=== PATIENT | female | born 1965 | race African-American/Black ===

== ENCOUNTER 2017-05-25 02:11 | Inpatient (IN) | payer BC ==
--- NOTE | 2017-05-25 02:53 | RADIOLOGY REPORT (SQ) ---
EXAM DESCRIPTION: CHEST PA/LAT CLINICAL HISTORY: chest tightness COMPARISON: 01/08/2016 FINDINGS: Frontal and lateral views of the chest. The cardiomediastinal silhouette has normal size and contour. No consolidation, pneumothorax, or pleural effusion. No acute osseous abnormality. Prior cholecystectomy. IMPRESSION: 1. No acute pulmonary process identified.
[2017-05-25] MEDS ORDERED: ASPIRIN 81 MG TABLET, CHEWABLE PO ONE (03:48)
[2017-05-25] MEDS ORDERED: ALBUTEROL SULFATE 0.083% NEB 2.5 MG/3 ML AMPUL NEB ONE (03:49)
--- NOTE | 2017-05-25 03:49 | ER Document Report ---
ED General - General TRAVEL OUTSIDE OF THE [place] IN LAST 30 DAYS: No <DESIRAE CORDOVA - Last Filed: 05/25/17 08:22> <ERICK RESTREPO - Last Filed: 05/25/17 14:05> - General Chief Complaint: Chest Tightness Stated Complaint: CHEST TIGHTNESS Time Seen by Provider: 05/25/17 03:36 Notes: Patient is a 52 year old female who presents to the ED complaining of nonproductive cough, chest tightness for one week. She admits to chest discomfort this evening around 6pm. She states it improved with a hot shower with steam. She denies any nausea, vomiting, abdominal pain. Denies any recent travel, surgeries, hormone replacement, tobacco use. Patient denies any past history of [place]. Had a recent cardiac workup in December [place] with a negative stress test and echo. She does have a history of hypertension. Primary care is with Patricia Ibrahim. (DESIRAE CORDOVA) - Related Data Allergies/Adverse Reactions: No Known Allergies Allergy (Verified 05/25/17 03:37) Past Medical History - Social History Smoking Status: Never Smoker Patient has suicidal ideation: No Patient has homicidal ideation: No - Past Medical History Cardiac Medical History: Reports: Hx Hypertension Pulmonary Medical History: Reports: Hx Asthma - childhood, Hx Bronchitis, Hx Pneumonia Renal/ Medical History: Denies: Hx Peritoneal Dialysis Musculoskeltal Medical History: Reports Hx Arthritis Past Surgical History: Reports: Hx Cholecystectomy, Hx Tonsillectomy <DESIRAE CORDOVA - Last Filed: 05/25/17 08:22> Review of Systems <DESIRAE CORDOVA - Last Filed: 05/25/17 08:22> <ERICK RESTREPO - Last Filed: 05/25/17 14:05> - Review of Systems Notes: REVIEW OF SYSTEMS: CONSTITUTIONAL : Denies fever, chills, or sweats. Denies recent illness. EENT: Denies eye, ear, throat, or mouth pain or symptoms. Denies nasal or sinus congestion or discharge. Denies throat, tongue, or mouth swelling or difficulty swallowing. CARDIOVASCULAR: Admits to chest pain with pain reproducible to palpation of her sternum. Denies palpitations or racing or irregular heart beat. Denies ankle edema. RESPIRATORY: Admits to cough, cold and congestion. Denies shortness of breath, difficulty breathing, or wheezing. GASTROINTESTINAL: Denies abdominal pain or distention. Denies nausea, vomiting , or diarrhea. Denies blood in vomitus, stools, or per rectum. Denies black, tarry stools. Denies constipation. GENITOURINARY: Denies difficulty urinating, painful urination, burning, frequency, blood in urine, or discharge. MUSCULOSKELETAL: Denies any muscle spasms, difficulty walking, extremity pain SKIN: Denies rash, lesions or sores. HEMATOLOGIC : Denies easy bruising or bleeding. LYMPHATIC: Denies swollen, enlarged glands. NEUROLOGICAL: Denies confusion or altered mental status. Denies passing out or loss of consciousness. Denies dizziness or lightheadedness. Denies headache. Denies weakness or paralysis or loss of use of either side. Denies problems with gait or speech. Denies sensory loss, numbness, or tingling. Denies seizures. PSYCHIATRIC: Denies anxiety or stress. Denies depression, suicidal ideation, or homicidal ideation. ALL OTHER SYSTEMS REVIEWED AND NEGATIVE. Dictation was performed using [employer] voice recognition software (DESIRAE CORDOVA) Physical Exam <DESIRAE CORDOVA - Last Filed: 05/25/17 08:22> <ERICK RESTREPO - Last Filed: 05/25/17 14:05> - Vital signs Vitals: Temp Pulse BP Pulse Ox 98.6 F 71 155/84 H 95 05/25/17 02:25 05/25/17 02:25 05/25/17 02:25 05/25/17 02:25 - Notes Notes: PHYSICAL EXAM GENERAL: Alert, interacts well. HEAD: Normocephalic, atraumatic. EYES: Pupils equal, round, and reactive to light. Extraocular movements intact. ENT: Oral mucosa moist, tongue midline. NECK: Full range of motion. Supple. Trachea midline. LUNGS: Diffuse rhonchi noted bilaterally without wheezes, stridor no respiratory distress. HEART: Chest tender to palpation over the sternum without crepitus, deformities regular rate and rhythm. No murmurs, gallops, or rubs. ABDOMEN: Soft, nondistended, nontender. No guarding, rebound, or rigidity.. Bowel sounds present in all 4 quadrants. EXTREMITIES: Moves all 4 extremities spontaneously. No edema, radial and dorsalis pedis pulses 2/4 bilaterally. No cyanosis. NEUROLOGICAL: Alert and oriented x4. Normal speech. PSYCH: Normal affect, normal mood. SKIN: Warm, dry, normal turgor. No rashes or lesions noted. (DESIRAE CORDOVA) Course - Laboratory Result Diagrams: 05/25/17 04:10 05/25/17 04:10 <DESIRAE CORDOVA - Last Filed: 05/25/17 08:22> - Laboratory Result Diagrams: 05/25/17 04:10 05/25/17 04:10 <ERICK RESTREPO - Last Filed: 05/25/17 14:05> - Re-evaluation Re-evalutation: 05/25/17 05:45 Patient is a 52-year-old female who is hemodynamically stable, no acute distress and afebrile. Patient states that she had improvement with her breathing after breathing treatments but has returned to wheezing and shortness of breath. Patient is very well in appearance, blood pressure elevated but do for him a.m. lisinopril. Low clinical suspicion for ACS given clinical history , exam, EKG without ST elevations or depressions, and negative initial troponin. No relief of chest pain with nitro. HEART score less than or equal to 3. PE also seems unlikely given clinical history, absence of tachycardia or dyspnea. Well's score of 0. D-dimer negative. CXR without evidence of pneumothorax or pneumonia. No widened mediastinum. Aortic dissection also seems unlikely given history, symmetric pulses, CXR, and vitals. Care signed out to Erick Rodriguez nurse practitioner (DESIRAE CORDOVA) [id number]-provider received apart from JUDITH Woodard. Patient evaluated at bedside, states she still is having chest pain. Patient reports she is also having shortness of breath worsening with her chest pain. EKG was unchanged from previous EKGs. Patient did bring her history from when she was seen at [facility] for her stress test as well as her echocardiogram which were both. This providers unable to reproduce deep lower sternal chest pain but able to reproduce upper sternal chest pain on palpation. Patient remains afebrile however she is hypertensive. Patient was given lisinopril which is her home dose of hypertensive medication. Patient is rhonchorous throughout. Given begin treatment. Chest x-ray was negative for any acute findings. We will order CTA concerns of dyspnea, tachypnea with chest pain. Patient remains afebrile. 0945-CTA shows left lower lobe pneumonia. Start patient on IV levofloxacin and Rocephin. Patient given another breathing treatment. Second set of troponin negative. 1030-Patient remains rhonchorous throughout after breathing treatment after auscultation of the lungs no other concerns of AAA, PE , masses or lesions. Patient ambulated around the unit, pulse ox no greater than 93%, heart rate elevated at 112 with blood pressure 185/82. 1115-patient admitted as an inpatient for chest pain, left lower lobe pneumonia and tachypnea. All questions and concerns answered by this provider about her admission as well as her family's questions or concerns. Patient was agreeable to being admitted for further care and evaluation. (ERICK RESTREPO) - Vital Signs Vital signs: Temp Pulse Resp BP Pulse Ox 97.9 F 71 17 166/84 H 95 05/25/17 07:26 05/25/17 02:25 05/25/17 11:31 05/25/17 11:31 05/25/17 11:31 - Laboratory Laboratory results interpreted by me: 05/25/17 04:10 Sodium 145.3 H Discharge <DESIRAE CORDOVA - Last Filed: 05/25/17 08:22> - Discharge Admitting Provider: Hospitalist - Dr. Dejan Torres Unit Admitted: Telemetry <ERICK RESTREPO - Last Filed: 05/25/17 14:05> - Discharge Clinical Impression: Tachypnea Chest pain Qualifiers: Ischemic chest pain type: other angina pectoris type Pneumonia Qualifiers: Pneumonia type: due to unspecified organism Clinical Impression: (Ruled Out): Tachypnea on examination Condition: Good Disposition: ADMITTED INPATIENT
[2017-05-25 04:20] LABS: ABSOLUTE EOSINOPHILS # (AUTO) 0.1 10^3/uL (0.0-0.6); ABSOLUTE LYMPHOCYTES (AUTO) 2.5 10^3/uL (0.5-4.7); ABSOLUTE MONOCYTES (AUTO) 0.5 10^3/uL (0.1-1.4); ABSOLUTE NEUT (AUTO) 2.7 10^3/uL (1.7-8.2); BASOPHILS % (AUTO) 0.5 % (0-2); EOSINOPHILS % (AUTO) 2.1 % (0-6); HEMOGLOBIN 13.3 g/dL (12.0-15.5); MEAN CORPUSCULAR HEMOGLOBIN 28.8 pg (27.0-33.4); MEAN CORPUSCULAR HGB CONC 33.2 g/dL (32.0-36.0); MEAN CORPUSCULAR VOLUME 87 fl (80-97); MONOCYTES % (AUTO) 8.7 % (3-13); PLATELET COUNT 226 10^3/uL (150-450); RED BLOOD COUNT 4.61 10^6/uL (3.72-5.28); RED CELL DISTRIBUTION WIDTH 13.4 % (11.5-14.0); SEGMENTED NEUTROPHILS % (AUTO) 45.7 % (42-78); TOTAL CELLS COUNTED % (AUTO) 100 %; WHITE BLOOD COUNT 5.9 10^3/uL (4.0-10.5)
[2017-05-25 04:52] LABS: ALANINE AMINOTRANSFERASE 34 U/L (9-52); ALBUMIN 4.2 g/dL (3.5-5.0); ALKALINE PHOSPHATASE 60 U/L (38-126); ANION GAP 9 (5-19); ASPARTATE AMINO TRANSFERASE 31 U/L (14-36); BILIRUBIN,DIRECT 0.4 mg/dL (0.0-0.4); BILIRUBIN,TOTAL 0.8 mg/dL (0.2-1.3); BLOOD UREA NITROGEN 17 mg/dL (7-20); CALCIUM 9.5 mg/dL (8.4-10.2); CARBON DIOXIDE 29 mmol/L (22-30); CHLORIDE 107 mmol/L (98-107); CREATINE KINASE 102 U/L (30-135); GLUCOSE 96 mg/dL (75-110); SODIUM 145.3 mmol/L (137-145); TOTAL PROTEIN 7.4 g/dL (6.3-8.2)
[2017-05-25 05:04] LABS: CREATINE KINASE MB 0.56 ng/mL (<4.55)
[2017-05-25 05:20] LABS: TROPONIN I < 0.012 ng/mL
[2017-05-25] MEDS ORDERED: PREDNISONE 20 MG TABLET PO ONE (05:42)
[2017-05-25] MEDS ORDERED: IPRATROPIUM/ALBUTEROL 0.5-2.5 MG/3 ML AMPUL NEB ONE ×3 (05:42→15:00)
[2017-05-25] MEDS ORDERED: LISINOPRIL 10 MG TABLET PO ONE (06:33)
[2017-05-25] MEDS ORDERED: NITROGLYCERIN 0.4 MG/TAB 25 TAB/BOTTLE SL PRN (07:20)
--- NOTE | 2017-05-25 09:18 | RADIOLOGY REPORT (SQ) ---
EXAM DESCRIPTION: CTA CHEST COMPLETED DATE/TIME: 05/25/2017 8:43 am REASON FOR STUDY: dyspnea, pulse ox 92%, Chest pain COMPARISON: None. TECHNIQUE: CT scan of the chest performed using helical scanning technique with dynamic intravenous contrast injection. Images reviewed with lung, soft tissue and bone windows. Reconstructed coronal and sagittal MPR images reviewed. Additional 3 dimensional post-processing performed to develop Maximal Intensity Projection images (RI P). All images stored on PACS. All CT scanners at this facility use dose modulation, iterative reconstruction, and/or weight based d osing when appropriate to reduce radiation dose to as low as reasonably achievable (ALARA). [facility]: Dose Right [facility]: CareDose [facility]: Dose Right [facility]: Teradose 4D [facility]: [email or web address] CONTRAST TYPE AND DOSE: contrast/concentration: Isovue 370.00 mg/ml; Total Contrast Delivered: 82.0 ml; Total Saline Delivered: 77.0 ml 82 mm Isovue 370- low osmolar. Contrast bolus optimized for the pulmonary arteries. Not diagnostic for the aorta. RENAL FUNCTION: Creatinine 0.86 RADIATION DOSE: CT Rad equipment meets quality standard of care and radiation dose reduction techniq ues were employed. CTDIvol: 16.5 - 24.2 mGy. DLP: 875 mGy-cm. . LIMITATIONS: None. FINDINGS: LUNGS AND PLEURA: Patchy infiltrate posterior segment of the left lower lobe. Atelectasis versus pneumonia. AORTA AND GREAT VESSELS: No aneurysm. Contrast bolus not optimized for the aorta. HEART: No pericardial effusion. No significant coronary artery calcifications. PULMONARY ARTERIES: No emboli visualized in the main pulmonary arteries or the segmental branches. HILAR AND MEDIASTINAL STRUCTURES: No identified masses or abnormal nodes. HARDWARE: None in the chest. UPPER ABDOMEN: No significant findings. Limited exam. THYROID AND OTHER SOFT TISSUES: No masses. No adenopathy. BONES: No acute or significant finding. 3D MIPS: Confirm above findings. OTHER: No other significant finding. IMPRESSION: No aortic aneurysm or pulmonary emboli. Infiltrate posterior segment of the the left lo wer lobe. Atelectasis or pneumonia should be considered. COMMENT: Quality ID # [id number]: Final reports with documentation of one or more dose reduction techniques (e.g., Automated exposure control, adjustment of the mA and/or kV according to patient size, use of iterative reconstruction technique) TECHNICAL DOCUMENTATION: JOB ID: [id number] [employer]- All Rights Reserved Reading location - IP/workstation name: [email or web address]
--- NOTE | 2017-05-25 09:31 | EKG REPORT ---
SEVERITY:- ABNORMAL ECG - SINUS RHYTHM ABNORMAL T, CONSIDER ISCHEMIA, DIFFUSE LEADS : Confirmed by: Summer Cardenas 25-May-2017 09:31:29
--- NOTE | 2017-05-25 09:31 | EKG REPORT ---
SEVERITY:- ABNORMAL ECG - SINUS RHYTHM PROBABLE LEFT ATRIAL ABNORMALITY PROBABLE LEFT VENTRICULAR HYPERTROPHY NONSPECIFIC T ABNORMALITIES, INFERIOR LEADS : Confirmed by: Summer Cardenas 25-May-2017 09:31:23
[2017-05-25] MEDS ORDERED: LEVOFLOXACIN 750 MG/D5W RTU 750 MG/150 ML RTUPB IV ONE (09:40)
[2017-05-25] MEDS ORDERED: CEFTRIAXONE INJ 1000 MG VIAL IM ONE ×2 (09:41→09:43)
[2017-05-25] MEDS ORDERED: LIDOCAINE 1% INJ-PF (10 MG/ML) 30 ML SDV INJ ONE (09:43)
[2017-05-25] MEDS ORDERED: LOSARTAN POTASSIUM 50 MG TABLET PO ONE (11:17)
[2017-05-25 12:48] LABS: APPEARANCE,URINE CLEAR; BILIRUBIN,URINE NEGATIVE (NEGATIVE); COLOR,URINE YELLOW; GLUCOSE, URINE NEGATIVE (NEGATIVE); KETONES,URINE NEGATIVE (NEGATIVE); LEUKOCYTE ESTERASE,URINE NEGATIVE (NEGATIVE); NITRITE,URINE NEGATIVE (NEGATIVE); PROTEIN,URINE NEGATIVE (NEGATIVE); URINE SPECIFIC GRAVITY 1.035
[2017-05-25] MEDS ORDERED: RINGERS SOLUTION,LACTATED 1,000 ML IV PRN (13:07)
[2017-05-25] MEDS ORDERED: ONDANSETRON 4 MG TAB.RAPDIS PO PRN (13:07)
[2017-05-25] MEDS ORDERED: ACETAMINOPHEN 325 MG TABLET PO PRN (13:07)
[2017-05-25] MEDS ORDERED: HYDRALAZINE HCL INJ/PF 20 MG/1 ML SDV IV PRN (13:27)
--- NOTE | 2017-05-25 13:29 | PDOC H&P ---
History of Present Illness Admission Date/PCP: 05/25/17 11:38 NO LOCALMD Patient complains of: Cough and chest discomfort History of Present Illness: BERE OTT is a 52 year old female presents to our facility with complaint of chest pain wheezing for the last 2-3 days. Patient states that last Wednesday she went to her primary doctor due to symptoms of flu. Patient states that she was not given anything therefore she went to the pharmacy and purchase some Sudafed. Patient states that Sudafed is the only thing that has been helping her. Patient states over the last few days however will cough and wheezing has worsened. Patient reports that at night her stated that she appears to be panting for air. Patient states that she does have a known sick contact which is her granddaughter. Patient denies any nausea vomiting or fever. Past Medical History Cardiac Medical History: Reports: Hypertension Pulmonary Medical History: Reports: Asthma - childhood, Bronchitis, Pneumonia Musculoskeltal Medical History: Reports: Arthritis Past Surgical History Past Surgical History: Reports: Cholecystectomy, Tonsillectomy Social History Information Source: Patient Lives with: Spouse/Significant other Smoking Status: Never Smoker Frequency of Alcohol Use: None Hx Recreational Drug Use: No Drugs: None Hx Prescription Drug Abuse: No - Advance Directive Resuscitation Status: Full Code Family History Family History: CAD, Hypertension Parental Family History Reviewed: Yes Children Family History Reviewed: Yes Sibling(s) Family History Reviewed.: Yes Medication/Allergy Allergies/Adverse Reactions: No Known Allergies Allergy (Verified 05/25/17 03:37) Review of Systems Constitutional: ABSENT: chills, fever(s), headache(s), weight gain, weight loss Eyes: ABSENT: visual disturbances Ears: ABSENT: hearing changes Cardiovascular: PRESENT: chest pain, dyspnea on exertion. ABSENT: edema, orthropnea, palpitations Respiratory: PRESENT: cough, dyspnea, sputum Gastrointestinal: ABSENT: abdominal pain, constipation, diarrhea, hematemesis, hematochezia, nausea, vomiting Genitourinary: ABSENT: dysuria, hematuria Musculoskeletal: ABSENT: joint swelling Integumentary: ABSENT: rash, wounds Neurological: ABSENT: abnormal gait, abnormal speech, confusion, dizziness, focal weakness, syncope Psychiatric: ABSENT: anxiety, depression, homidical ideation, suicidal ideation Endocrine: ABSENT: cold intolerance, heat intolerance, polydipsia, polyuria Hematologic/Lymphatic: ABSENT: easy bleeding, easy bruising Physical Exam Vital Signs: Temp Pulse Resp BP Pulse Ox 97.9 F 71 17 166/84 H 95 05/25/17 07:26 05/25/17 02:25 05/25/17 11:31 05/25/17 11:31 05/25/17 11:31 General appearance: PRESENT: no acute distress, well-developed, well-nourished Head exam: PRESENT: atraumatic, normocephalic Eye exam: PRESENT: conjunctiva pink, EOMI. ABSENT: scleral icterus Ear exam: PRESENT: normal external ear exam Mouth exam: PRESENT: moist, tongue midline Neck exam: ABSENT: carotid bruit, JVD, lymphadenopathy, thyromegaly Respiratory exam: PRESENT: accessory muscle use, decreased breath sounds, prolonged expiratory phas, wheezes Cardiovascular exam: PRESENT: RRR. ABSENT: diastolic murmur, rubs, systolic murmur Pulses: PRESENT: normal dorsalis pedis pul Vascular exam: PRESENT: normal capillary refill GI/Abdominal exam: PRESENT: normal bowel sounds, soft. ABSENT: distended, guarding, mass, organolmegaly, rebound, tenderness Rectal exam: PRESENT: deferred Extremities exam: PRESENT: full ROM. ABSENT: calf tenderness, clubbing, pedal edema Musculoskeletal exam: PRESENT: full ROM Neurological exam: PRESENT: alert, awake, oriented to person, oriented to place , oriented to time, oriented to situation, CN II-XII grossly intact. ABSENT: motor sensory deficit Psychiatric exam: PRESENT: appropriate affect, normal mood. ABSENT: homicidal ideation, suicidal ideation Skin exam: PRESENT: dry, intact, warm. ABSENT: cyanosis, rash Results Laboratory Results: 05/25/17 12:21 Urine Color YELLOW Urine Appearance CLEAR Urine pH 8.0 Ur Specific [place] 1.035 Urine Protein NEGATIVE Urine Glucose (UA) NEGATIVE Urine Ketones NEGATIVE Urine Blood MODERATE H Urine Nitrite NEGATIVE Ur Leukocyte Esterase NEGATIVE Urine WBC (Auto) 1 Urine RBC (Auto) 8 05/25/17 11:45 Troponin I < 0.012 Impressions: Chest X-Ray 05/25/17 00:00 IMPRESSION: 1. No acute pulmonary process identified. Chest/Abdomen CTA 05/25/17 08:03 IMPRESSION: No aortic aneurysm or pulmonary emboli. Infiltrate posterior segment of the the left lower lobe. Atelectasis or pneumonia should be considered. Assessment & Plan - Diagnosis (1) Pneumonia Qualifiers: Pneumonia type: due to unspecified organism Is this a current diagnosis for this admission?: Yes Plan: Community acquired pneumonia: We will place patient on Rocephin and Zithromax. (2) Reactive airway disease Is this a current diagnosis for this admission?: Yes Plan: We will place patient on scheduled steroids, breathing treatments, and antibiotics. Patient gives remote history of asthma as a child. (3) Essential hypertension Is this a current diagnosis for this admission?: Yes Plan: Patient told not to use Sudafed. Will resume patient's home medications. Will write for as needed hydralazine with parameters. (4) Chest pain Qualifiers: Ischemic chest pain type: other angina pectoris type Is this a current diagnosis for this admission?: Yes Plan: Consult cardiology. Will trend troponins. Patient had a stress test done at [facility] 2016 which she reports that was normal. (5) Hypernatremia Is this a current diagnosis for this admission?: Yes Plan: Patient on IV fluids will reevaluate in a.m. (6) DVT prophylaxis Is this a current diagnosis for this admission?: Yes Plan: SCDs - Time Time Spent: 30 to 50 Minutes
[2017-05-25] MEDS: METHYLPREDNISOLONE INJ 40 MG/1 ML SDV IV SCH ×2 (14:17→22:57)
[2017-05-25] MEDS ORDERED: AZITHROMYCIN 500 MG in DEXTROSE 5%-WATER 250 ML IV SCH (18:00)
[2017-05-25] MEDS: IPRATROPIUM/ALBUTEROL 0.5-2.5 MG/3 ML AMPUL NEB SCH (20:19)
[2017-05-26] MEDS ORDERED: LANSOPRAZOLE 30 MG TAB.RAP.DR PO SCH (06:00)
[2017-05-26 07:02] LABS: ALANINE AMINOTRANSFERASE 38 U/L (9-52); ALBUMIN 3.9 g/dL (3.5-5.0); ALKALINE PHOSPHATASE 59 U/L (38-126); ANION GAP 14 (5-19); ASPARTATE AMINO TRANSFERASE 22 U/L (14-36); BILIRUBIN,DIRECT 0.2 mg/dL (0.0-0.4); BILIRUBIN,TOTAL 0.7 mg/dL (0.2-1.3); BLOOD UREA NITROGEN 18 mg/dL (7-20); CALCIUM 10.1 mg/dL (8.4-10.2); CARBON DIOXIDE 23 mmol/L (22-30); CHLORIDE 105 mmol/L (98-107); GLUCOSE 145 mg/dL (75-110); POTASSIUM 4.7 mmol/L (3.6-5.0); SODIUM 141.5 mmol/L (137-145); TOTAL PROTEIN 6.6 g/dL (6.3-8.2)
[2017-05-26 07:03] LABS: ABSOLUTE LYMPHOCYTES (AUTO) 1.3 10^3/uL (0.5-4.7); ABSOLUTE MONOCYTES (AUTO) 0.5 10^3/uL (0.1-1.4); ABSOLUTE NEUT (AUTO) 10.9 10^3/uL (1.7-8.2); BASOPHILS % (AUTO) 0.2 % (0-2); HEMATOCRIT 39.6 % (36.0-47.0); HEMOGLOBIN 12.8 g/dL (12.0-15.5); LYMPHOCYTES % (AUTO) 10.2 % (13-45); MEAN CORPUSCULAR HEMOGLOBIN 28.1 pg (27.0-33.4); MEAN CORPUSCULAR HGB CONC 32.3 g/dL (32.0-36.0); MEAN CORPUSCULAR VOLUME 87 fl (80-97); MONOCYTES % (AUTO) 4.1 % (3-13); PLATELET COUNT 209 10^3/uL (150-450); RED BLOOD COUNT 4.54 10^6/uL (3.72-5.28); RED CELL DISTRIBUTION WIDTH 13.5 % (11.5-14.0); SEGMENTED NEUTROPHILS % (AUTO) 85.5 % (42-78); TOTAL CELLS COUNTED % (AUTO) 100 %
[2017-05-26 07:09] LABS: WHITE BLOOD COUNT 12.8 10^3/uL (4.0-10.5)
[2017-05-26 07:13] LABS: FREE T4 (FREE THYROXINE) 1.23 ng/dL (0.78-2.19)
[2017-05-26 07:26] LABS: THYROID STIMULATING HORMONE 0.29 uIU/mL (0.47-4.68)
[2017-05-26] MEDS: METHYLPREDNISOLONE INJ 40 MG/1 ML SDV IV SCH (07:26)
[2017-05-26] MEDS: IPRATROPIUM/ALBUTEROL 0.5-2.5 MG/3 ML AMPUL NEB SCH (07:43)
[2017-05-26] MEDS ORDERED: CEFTRIAXONE 2 GM/D5W RTU 2 GM/50 ML RTUPB IV SCH (10:00)
[2017-05-26 12:15] VITALS: BP 163/77
--- NOTE | 2017-05-26 17:06 | PDOC DISCHARGE SUMMARY ---
General - Admit/Disc Date/PCP Admission Date/Primary Care Provider: 05/25/17 11:38 NO LOCALMD Discharge Date: 05/26/17 - Discharge Diagnosis (1) URI (upper respiratory infection) Is this a current diagnosis for this admission?: Yes Summary: Had around 1 week of symptoms include nasal congestion, cough, and wheezing. Feels that her allergies have been worse lately. CTA chest at admission showed LLL infilitrate. Started on antibiotics and steroids at admission. - Feeling much better today. Denies fevers or chills. Afebrile and HDS on vitals - Given rapid improvement felt less likely to be PNA and more likely viral URI Outpatient plan - Continue prednisone 40mg daily * 4 additional days - Continue azithromycin 250mg daily * 4 addtional days - Supportive care with mucinex and breathing treatments PRN - Advised to call PCP or return to hospital if symptoms do not improve or worsen and then should receive full treatment antibiotic course (2) Chest pain Is this a current diagnosis for this admission?: Yes Summary: Presented with chest pain, mostly likely pleuretic in nature given URI. Troponin negative * 4. NO EKG changes. Resolved completely by time of discharge (3) Essential hypertension Is this a current diagnosis for this admission?: Yes Summary: Blood pressures noted to be elevated - Continue home anti-hypertensives - Encouraged to re-check after illness has resolved - Additional Information Resuscitation Status: Full Code Discharge Diet: As Tolerated Discharge Activity: Activity As Tolerated Prescriptions: Azithromycin 250 mg PO DAILY 4 Days #4 tablet Prednisone 40 mg PO DAILY 4 Days #8 tablet Home Medications: Atenolol [Tenormin 50 mg Tablet] 50 mg PO QHS 05/25/17 Celecoxib [Celebrex 100 mg Capsule] 100 mg PO Q12HP PRN 05/25/17 Cyclobenzaprine HCl [Flexeril 10 mg Tablet] 10 mg PO Q8HP PRN 05/25/17 Dextroamphetamine/Amphetamine [Adderall XR 10 mg Capsule] 10 mg PO QAM 05/25/17 Lisinopril/Hydrochlorothiazide [Lisinopril-Hctz 20-12.5 mg Tab] 1 tab PO QAM Azithromycin 250 mg PO DAILY 4 Days #4 tablet 05/26/17 Prednisone 40 mg PO DAILY 4 Days #8 tablet 05/26/17 History of Present Illness Patient complains of: chest pain, wheezing, cough History of Present Illness: BERE OTT is a 52 year old female presents to [facility] with complaint of chest pain wheezing for the last 2-3 days. Patient states that last Wednesday she went to her primary doctor due to symptoms of flu. Patient states that she was not given anything therefore she went to the pharmacy and purchase some Sudafed. Patient states that Sudafed is the only thing that has been helping her. Patient states over the last few days however will cough and wheezing has worsened. Patient reports that at night her stated that she appears to be panting for air. Patient states that she does have a known sick contact which is her granddaughter. Patient denies any nausea vomiting or fever. Physical Exam Vital Signs: Temp Pulse Resp BP Pulse Ox 97.8 F 73 18 163/77 H 96 05/26/17 13:30 05/26/17 13:30 05/26/17 13:30 05/26/17 13:30 05/26/17 13:30 Intake & Output 05/25/17 05/26/17 05/27/17 06:59 06:59 06:59 Intake Total 1242 Output Total 0 Balance 1242 Weight 104.6 kg General appearance: PRESENT: no acute distress, cooperative, obese Head exam: PRESENT: normocephalic Mouth exam: PRESENT: moist Respiratory exam: PRESENT: unlabored, wheezes - Scattered. ABSENT: tachypnea Cardiovascular exam: PRESENT: RRR. ABSENT: systolic murmur, tachycardia GI/Abdominal exam: PRESENT: soft. ABSENT: tenderness Musculoskeletal exam: PRESENT: ambulatory Neurological exam: PRESENT: alert, awake, CN II-XII grossly intact Psychiatric exam: PRESENT: appropriate affect Results Laboratory Results: 05/26/17 05:54 05/26/17 05:54 05/26/17 05/26/17 05/26/17 05:54 05:54 05:54 WBC 12.8 H D RBC 4.54 Hgb 12.8 Hct 39.6 MCV 87 MCH 28.1 MCHC 32.3 RDW 13.5 Plt Count 209 Seg Neutrophils % 85.5 H Lymphocytes % 10.2 L Monocytes % 4.1 Eosinophils % 0.0 Basophils % 0.2 Absolute Neutrophils 10.9 H Absolute Lymphocytes 1.3 Absolute Monocytes 0.5 Absolute Eosinophils 0.0 Absolute Basophils 0.0 Sodium 141.5 Potassium 4.7 Chloride 105 Carbon Dioxide 23 Anion Gap 14 BUN 18 Creatinine 0.74 Est GFR ( Amer) > 60 Est GFR (Non-Af Amer) > 60 Glucose 145 H Calcium 10.1 Total Bilirubin 0.7 AST 22 ALT 38 Alkaline Phosphatase 59 Total Protein 6.6 Albumin 3.9 TSH 0.29 L Free T4 1.23 05/25/17 05/25/17 05/25/17 11:45 17:55 23:40 Troponin I < 0.012 < 0.012 < 0.012 05/26/17 05:54 Troponin I < 0.012 Impressions: Chest X-Ray 05/25/17 00:00 IMPRESSION: 1. No acute pulmonary process identified. Chest/Abdomen CTA 05/25/17 08:03 IMPRESSION: No aortic aneurysm or pulmonary emboli. Infiltrate posterior segment of the the left lower lobe. Atelectasis or pneumonia should be considered. Qualifiers - * PATEINT BEING DISCHARGED WITH ANY OF THE FOLLOWING DIAGNOSIS?: No
== END 2017-05-26 13:59 | disposition home or self-care (01) | DRG 153 ==
LOC: ER 02:11 → EH 11:38 → 5 15:06
PROVIDERS: ADMIT Emergency Medicine; ATTEND Emergency Medicine
PROC: 3E0F73Z Introduction of Anti-inflammatory into Respiratory Tract, Via Natural or Artificial Opening (ICD-10-PCS; principal; 2017-05-25)
DX: J06.9 Acute upper respiratory infection, unspecified (principal); E87.0 Hyperosmolality and hypernatremia; I20.9 Angina pectoris, unspecified; I10 Essential (primary) hypertension; M19.90 Unspecified osteoarthritis, unspecified site; Z79.899 Other long term (current) drug therapy; Z90.49 Acquired absence of other specified parts of digestive tract; Z82.49 Family history of ischemic heart disease and other diseases of the circulatory system
CPT/HCPCS: 36415; 71046; 71275; 80053; 81001; 82550; 82553; 83880; 84439; 84443; 84484; 85025; 85379; 93005; 93010; 94640; 96365; 96372; 99285; J0456; J0696; J1956; J2920; J3490; J7060; J7512; J7620

== ENCOUNTER → 2017-11-05 | Outpatient (CLI) | payer BC ==
--- NOTE | 2017-11-05 14:37 | WOMENS IMAGING REPORT ---
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 TECHNIQUE: Dual-Energy X-ray Absorptiometry (DEXA) of the AP Spine and Hip. LIMITATIONS: None. FINDINGS: LUMBAR SPINE: The bone mineral density (BMD) measured from L1-L4 in the AP projection correlates with a T-score of -1.8, which is osteopenic as defined by the World Health Organization. HIP: The bone mineral density (BMD) measured in the left femoral neck at the hip correlates with a T-score of -0.6, which is normal as defined by the World Health Organization. IMPRESSION: 1. LUMBAR SPINE: Osteopenic 2. HIP: Normal COMMENT: The World Health Organization defines low BMD as follows: T-score: Normal: Greater than -1.0 Osteopenia: Between -1.0 and -2.5 Osteoporosis: Less than -2.5 without fractures Established osteoporosis: Less than -2.5 with fractures In general, you may wish to consider: Diagnosis Treatment Follow-up DEXA Normal BMD Prevention 2-3 years Osteopenia Prevention/Therapy 1-2 years Osteoporosis Therapy Yearly TECHNICAL DOCUMENTATION: JOB ID: [id number] [employer]- All Rights Reserved Reading location - IP/workstation name: [email or web address]
== END ==
LOC: WI 13:53
PROVIDERS: ATTEND Nurse Practitioner Family
DX: M81.0 Age-related osteoporosis without current pathological fracture (principal)
CPT/HCPCS: 77080

== ENCOUNTER 2018-03-18 15:20 | Inpatient (IN) | payer BC ==
--- NOTE | 2018-03-18 15:42 | RADIOLOGY REPORT (SQ) ---
EXAM DESCRIPTION: CT HEAD WITHOUT COMPLETED DATE/TIME: 03/18/2018 3:33 pm REASON FOR STUDY: stroke S/s COMPARISON: None. TECHNIQUE: Axial images acquired through the brain without intravenous contrast. Images reviewed wi th bone, brain and subdural windows. Additional sagittal and coronal reconstructions were generated. Images stored on PACS. All CT scanners at this facility use dose modulation, iterative reconstruction, and/or weight based d osing when appropriate to reduce radiation dose to as low as reasonably achievable (ALARA). [facility]: Dose Right [facility]: CareDose [facility]: Dose Right [facility]: Teradose 4D [facility]: [employer] RADIATION DOSE: 1043 mGy cm LIMITATIONS: None. FINDINGS: VENTRICLES: Normal size and contour. CEREBRUM: No masses. No hemorrhage. No midline shift. No evidence for acute infarction. Normal gra y/white matter differentiation. No areas of low density in the white matter. CEREBELLUM: No masses. No hemorrhage. No alteration of density. No evidence for acute infarction. EXTRAAXIAL SPACES: No fluid collections. No masses. ORBITS AND GLOBE: No intra- or extraconal masses. Normal contour of globe without masses. CALVARIUM: No fracture. PARANASAL SINUSES: No fluid or mucosal thickening. SOFT TISSUES: No mass or hematoma. OTHER: No other significant finding. IMPRESSION: No acute intracranial pathology. No noncontrast CT evidence of acute stroke or hemorrha ge. EVIDENCE OF ACUTE STROKE: NO. COMMENT: Quality ID # [id number]: Final reports with documentation of one or more dose reduction techniques (e.g., Automated exposure control, adjustment of the mA and/or kV according to patient size, use of iterative reconstruction technique) TECHNICAL DOCUMENTATION: JOB ID: [id number] [facility]- All Rights Reserved Reading location - IP/workstation name: [email or web address]
--- NOTE | 2018-03-18 15:46 | ER Document Report ---
ED General - General Stated Complaint: POSSIBLE STROKE Time Seen by Provider: 03/18/18 15:29 Mode of Arrival: Medic Information source: Patient, Emergency Med Personnel, [facility] Records Notes: 52-year-old female with hypertension, asthma, chronic neck and back pain, degenerative disc disease presents via EMS from her primary care physician's office with left-sided weakness, headache. Patient states headache started 1 w [place] prior to arrival. She describes it as gradual in onset, intermittent and located in her forehead. She describes it as a throbbing pain that worsens throughout the day. She also states that she has had intermittent left-sided weakness that worsened this morning. EMS reports that upon their arrival they noted left-sided weakness, left-sided facial droop. Patient denies any recent illness. TRAVEL OUTSIDE OF THE [place] IN LAST 30 DAYS: No - HPI Onset: Other Onset/Duration: Intermittent Quality of pain: Throbbing Severity: Moderate Associated symptoms: Headache, Weakness. denies: Chest pain, Leg swelling, Nausea, Vomiting, Shortness of breath Exacerbated by: Denies Relieved by: Denies Similar symptoms previously: Yes Recently seen / treated by doctor: Yes - Seen this morning at her primary care physician's office - Related Data Allergies/Adverse Reactions: No Known Allergies Allergy (Verified 05/25/17 03:37) Past Medical History - General Information source: Patient, Emergency Med Personnel, [facility] Records - Social History Smoking Status: Never Smoker Frequency of alcohol use: None Drug Abuse: None Lives with: Family Family History: CAD, Hypertension - Past Medical History Cardiac Medical History: Reports: Hx Hypertension Pulmonary Medical History: Reports: Hx Asthma - childhood, Hx Bronchitis, Hx P neumonia Renal/ Medical History: Denies: Hx Peritoneal Dialysis Musculoskeletal Medical History: Reports Hx Arthritis Past Surgical History: Reports: Hx Cholecystectomy, Hx Tonsillectomy Review of Systems - Review of Systems Notes: REVIEW OF SYSTEMS: CONSTITUTIONAL : Denies fever, chills, or sweats. Denies recent illness. Denies weight loss, recent hospitalizations. EENT: Denies visual changes, eye pain. Denies sore throat, oral lesions, difficulty swallowing. CARDIOVASCULAR: Denies chest pain. Denies palpitations. Denies lower extremity edema. RESPIRATORY: Denies cough. Denies shortness of breath, wheezing. GASTROINTESTINAL: Denies abdominal pain or distention. Denies nausea, vomiting, or diarrhea. Denies blood in vomitus, stools, or per rectum. Denies black, tarry stools. Denies constipation. GENITOURINARY: Denies difficulty urinating, painful urination, frequency, blood in urine, or vaginal discharge. MUSCULOSKELETAL: Denies back or neck pain or stiffness. Denies joint pain or swelling. SKIN: Denies rash, lesions or sores. HEMATOLOGIC : Denies easy bruising or bleeding. LYMPHATIC: Denies swollen glands. NEUROLOGICAL: Denies confusion or altered mental status. Denies loss of consciousness. Denies dizziness or lightheadedness. Denies paralysis. Denies problems difficulty with ambulation, slurred speech. Denies sensory loss, or tingling. Denies seizures. PSYCHIATRIC: Denies anxiety or stress. Denies depression, suicidal ideation, or homicidal ideation. Denies visual or auditory hallucinations. Physical Exam - Vital signs Vitals: Pulse Resp BP Pulse Ox 78 19 160/102 H 99 03/18/18 15:28 03/18/18 15:28 03/18/18 15:28 03/18/18 15:28 - Notes Notes: PHYSICAL EXAMINATION: GENERAL: Well-appearing, well-nourished and in no acute distress. HEAD: Atraumatic, normocephalic. EYES: Pupils equal round and reactive to light, extraocular movements intact, conjunctiva are normal. ENT: Nares patent, oropharynx clear without exudates. Moist mucous membranes. NECK: Normal range of motion, supple without lymphadenopathy LUNGS: Breath sounds clear to auscultation bilaterally and equal. No wheezes rales or rhonchi. HEART: Regular rate and rhythm without murmurs ABDOMEN: Soft, nontender, nondistended abdomen. No guarding, no rebound. No masses appreciated. Female : deferred Musculoskeletal: Normal range of motion, no pitting or edema. No cyanosis. NEUROLOGICAL: Cranial nerves grossly intact. Normal speech, Normal sensory, motor exams. NIH-4 for left upper and left lower extremity drift and left lower extremity ataxia. PSYCH: Normal mood, normal affect. SKIN: Warm, Dry, normal turgor, no rashes or lesions noted. Course - Re-evaluation Re-evalutation: Laboratory 03/18/18 03/18/18 03/18/18 15:18 15:18 15:18 WBC 7.3 RBC 4.74 Hgb 13.9 Hct 41.6 MCV 88 MCH 29.2 MCHC 33.3 RDW 13.4 Plt Count 259 Seg Neutrophils % 39.0 L Lymphocytes % 48.1 H Monocytes % 9.7 Eosinophils % 2.8 Basophils % 0.4 Absolute Neutrophils 2.9 Absolute Lymphocytes 3.5 Absolute Monocytes 0.7 Absolute Eosinophils 0.2 Absolute Basophils 0.0 PT 13.4 INR 0.97 APTT 30.9 Sodium 141.8 Potassium 4.5 Chloride 100 Carbon Dioxide 34 H Anion Gap 8 BUN 13 Creatinine 0.87 Est GFR ( Amer) > 60 Est GFR (Non-Af Amer) > 60 Glucose 103 POC Glucose Hemoglobin A1c % Calcium 10.3 H Total Bilirubin 0.9 Direct Bilirubin 0.3 Neonat Total Bilirubin Not Reportable Neonat Direct Bilirubin Not Reportable Neonat Indirect Bili Not Reportable AST 36 ALT 17 Alkaline Phosphatase 74 Creatine Kinase 66 CK-MB (CK-2) Troponin I Total Protein 8.4 H Albumin 4.8 Triglycerides Cholesterol LDL Cholesterol Direct VLDL Cholesterol HDL Cholesterol 03/18/18 03/18/18 03/18/18 15:18 15:18 15:18 WBC RBC Hgb Hct MCV MCH MCHC RDW Plt Count Seg Neutrophils % Lymphocytes % Monocytes % Eosinophils % Basophils % Absolute Neutrophils Absolute Lymphocytes Absolute Monocytes Absolute Eosinophils Absolute Basophils PT INR APTT Sodium Potassium Chloride Carbon Dioxide Anion Gap BUN Creatinine Est GFR ( Amer) Est GFR (Non-Af Amer) Glucose POC Glucose Hemoglobin A1c % 5.4 Calcium Total Bilirubin Direct Bilirubin Neonat Total Bilirubin Neonat Direct Bilirubin Neonat Indirect Bili AST ALT Alkaline Phosphatase Creatine Kinase CK-MB (CK-2) 0.46 Troponin I < 0.012 Total Protein Albumin Triglycerides 124 Cholesterol 210.79 H LDL Cholesterol Direct 135 H VLDL Cholesterol 25.0 HDL Cholesterol 36 L 03/18/18 15:52 WBC RBC Hgb Hct MCV MCH MCHC RDW Plt Count Seg Neutrophils % Lymphocytes % Monocytes % Eosinophils % Basophils % Absolute Neutrophils Absolute Lymphocytes Absolute Monocytes Absolute Eosinophils Absolute Basophils PT INR APTT Sodium Potassium Chloride Carbon Dioxide Anion Gap BUN Creatinine Est GFR ( Amer) Est GFR (Non-Af Amer) Glucose POC Glucose 89 Hemoglobin A1c % Calcium Total Bilirubin Direct Bilirubin Neonat Total Bilirubin Neonat Direct Bilirubin Neonat Indirect Bili AST ALT Alkaline Phosphatase Creatine Kinase CK-MB (CK-2) Troponin I Total Protein Albumin Triglycerides Cholesterol LDL Cholesterol Direct VLDL Cholesterol HDL Cholesterol Chest X-Ray 03/18/18 15:28 IMPRESSION: NO ACUTE RADIOGRAPHIC FINDING IN THE CHEST. Head CT 03/18/18 15:28 IMPRESSION: No acute intracranial pathology. No noncontrast CT evidence of acute stroke or hemorrhage. EVIDENCE OF ACUTE STROKE: NO. Head CTA 03/18/18 15:44 IMPRESSION: NO CTA EVIDENCE OF STENOSIS OR ANEURYSM OF THE [place]. Neck CTA 03/18/18 15:44 IMPRESSION: 1. NORMAL CTA OF THE EXTRA-CRANIAL CAROTID AND VERTEBRAL ARTERIES. NO SIGNIFICANT PLAQUE. NO STENOSIS OR DISSECTION. 2. MULTIPLE THYROID NODULES. Temp Pulse Resp BP Pulse Ox 78 15 142/73 H 98 03/18/18 18:00 03/18/18 18:00 03/18/18 18:00 03/18/18 18:00 03/18/18 19:07 52-year-old female presents with complaint of headache and left-sided weakness that have been intermittent for approximately 1 week. Patient was seen by her primary care physician's office who appreciated a facial droop and called EMS. Patient states that the left-sided weakness worsened this morning upon awake andrei. Vital signs reviewed upon arrival and patient is afebrile, mildly hypertensive. Neurologic exam was performed and patient has an NIH of 4 due to left upper and lower extremity drift and left lower ataxia. I do not appreciate a facial droop. CT, CTA of head and neck were also performed and showed no acute process, evidence of stroke or large vessel occlusion. Patient received aspirin, Reglan, Benadryl and IV fluids for her TIA and headache. MRI pending. CBC, CMP are unremarkable. Lipid panel does show hyperlipidemia. Patient will be admitted to the hospitalist for TIA and MRI. - Vital Signs Vital signs: Temp Pulse Resp BP Pulse Ox 78 15 142/73 H 98 03/18/18 18:00 03/18/18 18:00 03/18/18 18:00 03/18/18 18:00 - Laboratory Result Diagrams: 03/18/18 15:18 03/18/18 15:18 Laboratory results interpreted by me: 03/18/18 03/18/18 03/18/18 15:18 15:18 15:18 Seg Neutrophils % 39.0 L Lymphocytes % 48.1 H Carbon Dioxide 34 H Calcium 10.3 H Total Protein 8.4 H Cholesterol 210.79 H LDL Cholesterol Direct 135 H HDL Cholesterol 36 L - Diagnostic Test Radiology reviewed: Image reviewed, Reports reviewed - EKG Interpretation by Me EKG shows normal: Sinus rhythm Rate: Normal Rhythm: NSR When compared to previous EKG there are: Previous EKG unavailable Critical Care Note - Critical Care Note Total time excluding time spent on procedures (mins): 35 - Minutes of critical care time spent in direct contact evaluating and reevaluating the patient, treating symptoms, reviewing labs and studies and speaking with family and consultants excluding any procedures Discharge - Discharge Clinical Impression: TIA (transient ischemic attack), Left-sided weakness, Essential hypertension Headache Qualifiers: Headache type: unspecified Headache chronicity pattern: unspecified pattern Intractability: not intractable Qualified Code(s): R51 - Headache Hyperlipidemia Qualifiers: Hyperlipidemia type: unspecified Qualified Code(s): E78.5 - Hyperlipidemia, unspecified Condition: Good Disposition: ADMITTED INPATIENT Admitting Provider: Hospitalist Unit Admitted: [facility] ED NIH Stroke Scale - NIH Stroke Scale *: 1. NIH scale should be completed with appropriate accompanying assessment tools. *: 2. The NIH should reflect what the patient is capable of doing and should not be coached by the clinician. 1a. Level of Consciousness: 0=Alert;keenly responsive -: 1=Drowsy -: 2=Obtunded -: 3=Coma/unresponsive or reflex to noxious stimuli. 1a. Responses: 0 1b. Orientation Questions: a. What month is it? -: b. How old are you? -: 0=Answers both questions correctly. -: 1=Answers one question correctly or patient is intubated or has orotracheal trauma. -: 2=Answers neither question correctly. 1b. Responses: 0 1c. Response to commands: a. Open and close eyes? -: b. Electrical Project Engineer and release hand? -: Credit is given despite weakness. Demonstration of task is permitted. Substitute command if hands cannot be used. -: 0=Performs both tasks correctly -: 1=Performs one task correctly -: 2=Performs neither task correctly 1c. Responses: 0 2. Gaze: Establish eye contact and instruct patient to "Follow my finger" -: 0=Normal -: 1=Partial gaze palsy. Gaze is abnormal in one or both eyes, but where forced deviation or total gaze paresis is not present. -: 2=Forced deviation or total gaze paresis. 2. Responses: 0 3. Visual Rankin: Sees fingers in all four quadrants. -: 0=No visual loss. -: 1=Partial hemianopsia. -: 2=Complete hemianopsia. -: 3=Bilateral hemianopsia (including Cortical blindness) 3. Responses: 0 4. Facial Movement: Instruct patient to: -: a. Show me your teeth -: b. Raise your eyebrows -: c. Close your eyes -: d. Smile -: 0=Normal symmetrical movement -: 1=Minor paralysis (flattened nasolabial fold, asymmetry on smiling). -: 2=Partial paralysis (total or near total paralysis of lower face). -: 3=Complete paralysis of upper and lower face 4. Responses: 0 5. Motor functions (left arm): Alternate sides and extend each arm with palms down (90 degrees if sitting or 45 degrees for supine). -: 0=No drift;limb holds for full 10 seconds. -: 1=Drift; limb holds but drifts down before full 10 seconds, but does not hit bed. -: 2=Some effort against gravity; limb cannot get to or maintain position. -: 3=No effort against gravity; limb falls. -: 4=No movement. -: UN=Amputation, joint fusion, explain in comments. 5. Responses (left arm): 1 5. Motor Functions (right arm): Alternate sides and extend each arm with palms down (90 degrees if sitting or 45 degrees for supine). -: 0=No drift;limb holds for full 10 seconds. -: 1=Drift; limb holds but drifts down before full 10 seconds, but does not hit bed. -: 2=Some effort against gravity; limb cannot get to or maintain position. -: 3=No effort against gravity; limb falls. -: 4=No movement. -: UN=Amputation, joint fusion, explain in comments. 5. Responses (right arm): 0 6. Motor Functions (left leg): With patient lying supine, alternate sides and extend each leg (30 degrees always while supine). -: 0=No drift, leg holds position for full 5 seconds -: 1=Drift; leg falls before full 5 seconds but does not hit bed. -: 2=Some effort against gravity, leg falls to bed but some effort against gravity. -: 3=No effort against gravity, leg falls to bed immediately. -: 4=No movement. -: UN=Amputation, joint fusion; explain in comments. 6. Responses (left leg): 2 6. Motor Functions (right leg): With patient lying supine, alternate sides and extend each leg (30 degrees always while supine). -: 0=No drift, leg holds position for full 5 seconds -: 1=Drift; leg falls before full 5 seconds but does not hit bed. -: 2=Some effort against gravity, leg falls to bed but some effort against gravity. -: 3=No effort against gravity, leg falls to bed immediately. -: 4=No movement. -: UN=Amputation, joint fusion; explain in comments. 6. Responses (right leg): 0 7. Limb Ataxia: With eyes open instruct patient to: -: a. "Touch your finger to your nose". -: b. "Touch your heel to your moreno" -: 0=Absent -: 1=Present in one limb. -: 2=Present in two limbs. -: UN=Amputation or joint fusion; explain in comments. 7. Responses: 1 7. If ataxia present choose as appropriate: Left leg 8. Sensory: Test sensation using pinprick or noxious stimuli. Test as many body parts as possible. -: 0=Normal;no sensory loss -: 1=Mile to moderate sensory loss (patient feels pin prick but is less sharp on affected side). -: 2=Severe or total sensory loss. 8. Responses: 0 9. Best Language: Instruct patient to: -: a. "Describe what you see in this picture." -: b. "Name the items in this picture." -: c. "Read these sentences." -: 0=No aphasia, normal -: 1=Mild to moderate aphasia. -: 2=Severe aphasia -: 3=Mute, global aphasia, no usable speech or auditory comprehension. 9. Responses: 0 10. Articulation, Dysarthia: Instruct patient to: -: "Read these words" or "Repeat these words" -: 0=Normal -: 1=Mild to moderate; patient may slur some words but can be understood without difficulty. -: 2=Severe; patients speech so slurred as to be unintelligible in the absence of dysphasia. -: UN=Intubated or other physical barrier, explain in comments. 10. Responses: 0 11. Extinction or inattention: 0=No abnormality -: 1= Visual, tactile, auditory, spatial, or personal inattention or extinction to bilateral simulation in one or the sensory modalities. -: 2=Profound binh-inattention or binh-inattention to more than one modality; does not recognize own hand. 11. Responses: 0 Total Score: 4
[2018-03-18 15:47] LABS: ABSOLUTE EOSINOPHILS # (AUTO) 0.2 10^3/uL (0.0-0.6); ABSOLUTE LYMPHOCYTES (AUTO) 3.5 10^3/uL (0.5-4.7); ABSOLUTE MONOCYTES (AUTO) 0.7 10^3/uL (0.1-1.4); ABSOLUTE NEUT (AUTO) 2.9 10^3/uL (1.7-8.2); BASOPHILS % (AUTO) 0.4 % (0-2); EOSINOPHILS % (AUTO) 2.8 % (0-6); HEMATOCRIT 41.6 % (36.0-47.0); HEMOGLOBIN 13.9 g/dL (12.0-15.5); LYMPHOCYTES % (AUTO) 48.1 % (13-45); MEAN CORPUSCULAR HEMOGLOBIN 29.2 pg (27.0-33.4); MEAN CORPUSCULAR HGB CONC 33.3 g/dL (32.0-36.0); MEAN CORPUSCULAR VOLUME 88 fl (80-97); MONOCYTES % (AUTO) 9.7 % (3-13); PLATELET COUNT 259 10^3/uL (150-450); RED BLOOD COUNT 4.74 10^6/uL (3.72-5.28); RED CELL DISTRIBUTION WIDTH 13.4 % (11.5-14.0); TOTAL CELLS COUNTED % (AUTO) 100 %; WHITE BLOOD COUNT 7.3 10^3/uL (4.0-10.5)
[2018-03-18 15:51] LABS: INTERNATIONAL RATION (INR) 0.97; PARTIAL THROMBOPLASTIN TIME 30.9 SEC (23.5-35.8); PROTHROMBIN TIME 13.4 SEC (11.4-15.4)
--- NOTE | 2018-03-18 16:04 | RADIOLOGY REPORT (SQ) ---
EXAM DESCRIPTION: CHEST SINGLE VIEW COMPLETED DATE/TIME: 03/18/2018 3:39 pm REASON FOR STUDY: STROKE ALERT COMPARISON: Go 05/25/2017 EXAM PARAMETERS: NUMBER OF VIEWS: One view. TECHNIQUE: Single frontal radiographic view of the chest acquired. RADIATION DOSE: NA LIMITATIONS: None. FINDINGS: LUNGS AND PLEURA: No opacities, masses or pneumothorax. No pleural effusion. MEDIASTINUM AND HILAR STRUCTURES: No masses. Contour normal. HEART AND VASCULAR STRUCTURES: Heart normal in size. Normal vasculature. BONES: No acute findings. HARDWARE: None in the chest. OTHER: No other significant finding. IMPRESSION: NO ACUTE RADIOGRAPHIC FINDING IN THE CHEST. TECHNICAL DOCUMENTATION: JOB ID: [id number] [employer]- All Rights Reserved Reading location - IP/workstation name: [email or web address]
[2018-03-18 16:05] LABS: CHOLESTEROL 210.79 mg/dL (0-200); TRIGLYCERIDES 124 mg/dL (<150)
[2018-03-18 16:06] LABS: ALANINE AMINOTRANSFERASE 17 U/L (9-52); ALBUMIN 4.8 g/dL (3.5-5.0); ALKALINE PHOSPHATASE 74 U/L (38-126); ANION GAP 8 (5-19); ASPARTATE AMINO TRANSFERASE 36 U/L (14-36); BILIRUBIN,DIRECT 0.3 mg/dL (0.0-0.4); BILIRUBIN,TOTAL 0.9 mg/dL (0.2-1.3); BLOOD UREA NITROGEN 13 mg/dL (7-20); CALCIUM 10.3 mg/dL (8.4-10.2); CARBON DIOXIDE 34 mmol/L (22-30); CHLORIDE 100 mmol/L (98-107); CREATINE KINASE 66 U/L (30-135); GLUCOSE 103 mg/dL (75-110); POTASSIUM 4.5 mmol/L (3.6-5.0); SODIUM 141.8 mmol/L (137-145); TOTAL PROTEIN 8.4 g/dL (6.3-8.2)
[2018-03-18 16:15] LABS: DIRECT LDL 135 mg/dL (<100)
[2018-03-18 16:19] LABS: CREATINE KINASE MB 0.46 ng/mL (<4.55)
[2018-03-18 16:21] LABS: TROPONIN I < 0.012 ng/mL
[2018-03-18] MEDS ORDERED: NORMAL SALINE 500 ML IV ONE (16:51)
[2018-03-18] MEDS ORDERED: METOCLOPRAMIDE HCL INJ/PF 10 MG/2 ML SDV IV ONE (16:51)
[2018-03-18] MEDS ORDERED: DIPHENHYDRAMINE HCL 50 MG/ML VIAL IV ONE (16:51)
--- NOTE | 2018-03-18 16:53 | RADIOLOGY REPORT (SQ) ---
EXAM DESCRIPTION: CTA NECK COMPLETED DATE/TIME: 03/18/2018 4:36 pm REASON FOR STUDY: stroke like sx's COMPARISON: None. TECHNIQUE: Axial dynamic scanning technique with dynamic contrast enhancement through the extra-aircraft load controller nial carotid and vertebral arteries. Multiplanar reconstruction. 3-D MIPS and Volume-rendered imag es acquired at the workstation and saved to PACS. Images are reviewed in soft tissue, bone, lung w indows. All CT scanners at this facility use dose modulation, iterative reconstruction, and/or weight based d osing when appropriate to reduce radiation dose to as low as reasonably achievable (ALARA). [facility]: Dose Right [facility]: CareDose [facility]: Dose Right [facility]: Teradose 4D [facility]: [employer] CONTRAST TYPE AND DOSE: 70 mL Omnipaque 350- low osmolar. RENAL FUNCTION: BUN 13 creatinine 0.87. LIMITATIONS: None. FINDINGS: AORTIC ARCH: Normal three-vessel origin. Bilateral subclavian arteries are patent. No d issection. RIGHT CAROTIDS: Patent common, internal and external carotid arteries without suggestion of significa nt stenosis or irregular plaque. No dissection. RIGHT VERTEBRAL: Patent. No dissection. LEFT CAROTIDS: Patent common, internal and external carotid arteries without suggestion of significan t stenosis or irregular plaque. No dissection. LEFT VERTEBRAL: Patent. No dissection. OTHER: Multiple thyroid nodules. 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 No other significant finding. OTHER: 3-D reconstructions confirm findings. IMPRESSION: 1. NORMAL CTA OF THE EXTRA-CRANIAL CAROTID AND VERTEBRAL ARTERIES. NO SIGNIFICANT PLAQUE. NO STENOS IS OR DISSECTION. 2. MULTIPLE THYROID NODULES. COMMENT: Quality ID #[id number]: Measurements of distal internal carotid diameter were used as the denomina tor for stenosis measurement. TECHNICAL DOCUMENTATION: JOB ID: [id number] Quality ID # [id number]: Final reports with documentation of one or more dose reduction techniques (e.g., Au tomated exposure control, adjustment of the mA and/or kV according to patient size, use of iterative reconstruction technique) 2010 [employer]- All Rights Reserved Reading location - IP/workstation name: [email or web address]
--- NOTE | 2018-03-18 16:56 | RADIOLOGY REPORT (SQ) ---
EXAM DESCRIPTION: CTA HEAD COMPLETED DATE/TIME: 03/18/2018 4:36 pm REASON FOR STUDY: stroke like sx's COMPARISON: None. TECHNIQUE: Post IV contrast scanning, thin section axial imaging through the brain to evaluate the a rterial structures. Source and MIP images are saved and reviewed on PACS. Advanced 3D imaging as volume-rendering, MIPs, SSD performed? yes All CT scanners at this facility use dose modulation, iterative reconstruction, and/or weight based d osing when appropriate to reduce radiation dose to as low as reasonably achievable (ALARA). [facility]: Dose Right [facility]: CareDose [facility]: Dose Right [facility]: Teradose 4D [facility]: [employer] CONTRAST TYPE AND DOSE: contrast/concentration: Isovue 350.00 mg/ml; Total Contrast Delivered: 70.0 ml; Total Saline Delivered: 75.0 ml RENAL FUNCTION: BUN 13 creatinine 0.87. LIMITATIONS: None. FINDINGS: [place]: The anterior, middle, posterior cerebral arteries are all patent. No ev idence of aneurysm or focal stenosis. POSTERIOR CIRCULATION: The distal vertebral arteries are patent as is the basilar artery. No aneurysm . BRAIN: No gross enhancing lesions as visualized. The superior cerebral hemispheres are not included in the field of view. BONES: Intact as visualized. SINUSES: No fluid or mucosal thickening. OTHER: No other significant finding. IMPRESSION: NO CTA EVIDENCE OF STENOSIS OR ANEURYSM OF THE [place]. TECHNICAL DOCUMENTATION: JOB ID: [id number] Quality ID # [id number]: Final reports with documentation of one or more dose reduction techniques (e.g., Au tomated exposure control, adjustment of the mA and/or kV according to patient size, use of iterative reconstruction technique) 2010 [email or web address]- All Rights Reserved Reading location - IP/workstation name: [email or web address]
[2018-03-18] MEDS ORDERED: ASPIRIN 81 MG TABLET, CHEWABLE PO ONE (17:07)
[2018-03-18] MEDS ORDERED: ACETAMINOPHEN 650 MG SUPP.RECT PR PRN (17:35)
[2018-03-18] MEDS ORDERED: ONDANSETRON HCL INJ/PF 4 MG/2 ML SDV IV PRN (17:35)
--- NOTE | 2018-03-18 17:38 | EKG REPORT ---
SEVERITY:- ABNORMAL ECG - SINUS RHYTHM PROBABLE LEFT ATRIAL ABNORMALITY NONSPECIFIC T ABNORMALITIES, LATERAL LEADS , UNCHANGED FROM 05/25/17 EKG. : Confirmed by: Cristian Barahona MD 18-Mar-2018 17:37:36
[2018-03-18] MEDS ORDERED: CYCLOBENZAPRINE HCL 10 MG TABLET PO PRN (17:41)
[2018-03-18] MEDS ORDERED: HYDRALAZINE HCL INJ/PF 20 MG/1 ML SDV IV PRN (17:45)
[2018-03-18] MEDS ORDERED: ENALAPRILAT DIHYDRATE INJ/PF 2.5 MG/2 ML SDV IV PRN (17:47)
[2018-03-18] MEDS ORDERED: OXYCODONE-ACETAMINOPHEN 5-325 MG TABLET PO PRN (18:04)
--- NOTE | 2018-03-18 18:06 | PDOC H&P ---
History of Present Illness Admission Date/PCP: 03/18/18 17:45 NACHO HESS MD Patient complains of: Headaches and left-sided weakness for the last 1 week History of Present Illness: BERE OTT is a 52 year old female with history of hypertension degenerative disc disease ADHD hypertension came to the emergency room with complaints of severe headaches on and off associated with left-sided weakness since 1 week. She tried to bear with the problems and even went to work since yesterday the symptoms are gotten worse so bad that she came to the emergency room today. She denies any nausea vomiting diarrhea diarrhea. She is complaining of little bit of sloughing of the speech. Denies any problems with vision denies any problem with swallowing. Has any problem with urination denies any problems with bowel movement. She says she is to have a headaches before but never had this kind of headaches. Has any problems with swallowing. Emergency room CT head was done which was negative for acute CVA CT of the neck CT of the head was done negative for hemodynamically significant stenosis. Medical consult was requested for admission. I went to see the patient in the emergency room she is a very very pleasant lady she confirms a history got from the records and she says she missed a couple of doses of blood pressure medications lately other than that she said nothing is different she is doing patient denies any problems with gait problems with walking only complaint is slightly slowed speech severe headaches left upper arm numbness. Facial numbness also she is complaining. Past Medical History Cardiac Medical History: Reports: Hypertension Pulmonary Medical History: Reports: Asthma - childhood, Bronchitis, Pneumonia Musculoskeltal Medical History: Reports: Arthritis Past Surgical History Past Surgical History: Reports: Cholecystectomy, Tonsillectomy, Other - Lower back discectomy. Social History Lives with: Family Smoking Status: Never Smoker Frequency of Alcohol Use: None Hx Recreational Drug Use: No Drugs: None Hx Prescription Drug Abuse: No - Advance Directive Resuscitation Status: Full Code Family History Family History: CAD, Hypertension Parental Family History Reviewed: Yes - Father and mother both have a heart attacks. Children Family History Reviewed: Yes Sibling(s) Family History Reviewed.: Yes Medication/Allergy Allergies/Adverse Reactions: No Known Allergies Allergy (Verified 05/25/17 03:37) Review of Systems Constitutional: ABSENT: fever(s) Ears: ABSENT: hearing changes Cardiovascular: ABSENT: chest pain, dyspnea on exertion Respiratory: ABSENT: cough, dyspnea, hemoptysis Musculoskeletal: PRESENT: back pain Neurological: PRESENT: dizziness, focal weakness, numbness, weakness Psychiatric: ABSENT: anxiety, depression, hallucinations Physical Exam Vital Signs: Temp Pulse Resp BP Pulse Ox 78 19 160/102 H 99 03/18/18 15:28 03/18/18 15:28 03/18/18 15:28 03/18/18 15:28 General appearance: PRESENT: no acute distress Head exam: PRESENT: atraumatic Eye exam: PRESENT: PERRLA Ear exam: PRESENT: normal external ear exam Mouth exam: PRESENT: neck supple, tongue midline, other - Left facial droop Teeth exam: PRESENT: poor dentation Neck exam: ABSENT: carotid bruit, JVD, lymphadenopathy, thyromegaly Respiratory exam: PRESENT: clear to auscultation massiel. ABSENT: rales, rhonchi, wheezes Cardiovascular exam: PRESENT: RRR. ABSENT: diastolic murmur, rubs, systolic murmur GI/Abdominal exam: PRESENT: normal bowel sounds, soft. ABSENT: distended, guarding, mass, organolmegaly, rebound, tenderness Extremities exam: PRESENT: full ROM. ABSENT: calf tenderness, clubbing, pedal edema Neurological exam: PRESENT: alert, altered, awake, oriented to person, oriented to time, oriented to situation, other - Patient has a left facial droop with left upper arm strength 3 / 5. Psychiatric exam: PRESENT: anxious Results Laboratory Results: 03/18/18 15:18 03/18/18 15:18 03/18/18 03/18/18 03/18/18 15:18 15:18 15:18 WBC 7.3 RBC 4.74 Hgb 13.9 Hct 41.6 MCV 88 MCH 29.2 MCHC 33.3 RDW 13.4 Plt Count 259 Seg Neutrophils % 39.0 L Lymphocytes % 48.1 H Monocytes % 9.7 Eosinophils % 2.8 Basophils % 0.4 Absolute Neutrophils 2.9 Absolute Lymphocytes 3.5 Absolute Monocytes 0.7 Absolute Eosinophils 0.2 Absolute Basophils 0.0 Sodium 141.8 Potassium 4.5 Chloride 100 Carbon Dioxide 34 H Anion Gap 8 BUN 13 Creatinine 0.87 Est GFR ( Amer) > 60 Est GFR (Non-Af Amer) > 60 Glucose 103 Calcium 10.3 H Total Bilirubin 0.9 AST 36 ALT 17 Alkaline Phosphatase 74 Total Protein 8.4 H Albumin 4.8 Triglycerides 124 Cholesterol 210.79 H LDL Cholesterol Direct 135 H VLDL Cholesterol 25.0 HDL Cholesterol 36 L 03/18/18 03/18/18 15:18 15:18 Creatine Kinase 66 CK-MB (CK-2) 0.46 Troponin I < 0.012 Impressions: Chest X-Ray 03/18/18 15:28 IMPRESSION: NO ACUTE RADIOGRAPHIC FINDING IN THE CHEST. Head CT 03/18/18 15:28 IMPRESSION: No acute intracranial pathology. No noncontrast CT evidence of acute stroke or hemorrhage. EVIDENCE OF ACUTE STROKE: NO. Head CTA 03/18/18 15:44 IMPRESSION: NO CTA EVIDENCE OF STENOSIS OR ANEURYSM OF THE [place]. Neck CTA 03/18/18 15:44 IMPRESSION: 1. NORMAL CTA OF THE EXTRA-CRANIAL CAROTID AND VERTEBRAL ARTERIES. NO SIGNIFICANT PLAQUE. NO STENOSIS OR DISSECTION. 2. MULTIPLE THYROID NODULES. Assessment & Plan - Diagnosis (1) Left-sided weakness Is this a current diagnosis for this admission?: Yes Plan: 03/18/2018 plan for today is to place the patient in [facility] as an inpatient with a diagnosis of left-sided CVA. Physical therapy consult occupational therapy consult was requested. Acute stroke core measures implemented Including the aspirin and Plavix ,Lovenox, SCDs atorvastatin ,lipid panel tomorrow, swallowing evaluation, neurochecks. Echocardiogram was requested CTA of the neck CT of the brain were negative for hemodynamically significant stenosis. MRI of the head without contrast was requested. The likely cause of CVA probably ischemic in nature. social research assistant consult was requested. Dietary consult was requested. (2) Essential hypertension Is this a current diagnosis for this admission?: Yes Plan: 03/18/2016 patient is given the history of hypertension with high blood pressure readings at home associated with severe headaches here in the emergency room blood pressure is 160/102. She is on lisinopril/hydrochlorothiazide and amlodipine at home plan is to continue those medications while in the hospital. Started on Vaseretic IV as needed for systolic blood pressure more than 150. Low-salt diet was advised. (3) Headache Qualifiers: Headache type: unspecified Headache chronicity pattern: unspecified pattern Intractability: not intractable Qualified Code(s): R51 - Headache Is this a current diagnosis for this admission?: Yes Plan: 03/18/2018-patient complaining of severe headaches probably secondary to uncontrolled hypertension and new CVA. I am going to put her on Percocet 10/325 mg every 6 as needed for headaches. Hopefully with better control of the blood pressures headaches may resolve. CT head was negative for acute changes. MRI of the brain was pending. (4) Hyperlipidemia Is this a current diagnosis for this admission?: Yes Plan: 03/18/2018-patient's total cholesterol is 210, LDL is 135 HDL is 36. She was sta rted on Lipitor 40 mg p.o. nightly. (5) Obesity (BMI 30-39.9) Is this a current diagnosis for this admission?: Yes Plan: 03/18/2018-patient's BMI is more than 35 diet exercise weight loss lifestyle modification were advised. Dietary consult was requested. - Time Time Spent: 50 to 70 Minutes Critical Time spent with patient: 15-24 minutes Medications reviewed and adjusted accordingly: Yes
--- NOTE | 2018-03-18 20:01 | RADIOLOGY REPORT (SQ) ---
EXAM DESCRIPTION: MRI HEAD WITHOUT COMPLETED DATE/TIME: 03/18/2018 7:49 pm REASON FOR STUDY: stroke like sx's COMPARISON: None. TECHNIQUE: Multiplanar imaging includes non-contrasted T1, T2, FLAIR, and diffusion with ADC map seq uences. Images stored on PACS. LIMITATIONS: None. FINDINGS: ANATOMY: No anomalies. Normal vascular flow voids. Pituitary fossa normal. CSF SPACES: Normal in size and contour. No hemorrhage. CEREBRUM: Sulci and gyri normal in size and contour. Normal white matter signal on FLAIR imaging. No evidence of hemorrhage, mass, or extraaxial fluid collection. POSTERIOR FOSSA: No signal alteration. No hemorrhage. No edema, masses or mass effect. Internal betty tory canals, cerebello-pontine angles, mastoids normal. DIFFUSION IMAGING: Negative for acute or sub-acute infarction. ORBITS: No masses. Globes normal. PARANASAL SINUSES: Mucous retention cyst in the left maxillary sinus. OTHER: No other significant finding. IMPRESSION: Left maxillary sinus disease. No acute intracranial imaging findings. EVIDENCE OF ACUTE STROKE: NO. TECHNICAL DOCUMENTATION: JOB ID: [id number] [employer]- All Rights Reserved Reading location - IP/workstation name: [email or web address]
[2018-03-18] MEDS ORDERED: ATENOLOL 50 MG TABLET PO SCH (22:00)
[2018-03-18 22:10] LABS: INTERNATIONAL RATION (INR) 0.97; PROTHROMBIN TIME 13.4 SEC (11.4-15.4)
[2018-03-18 22:41] LABS: CREATINE KINASE MB 0.47 ng/mL (<4.55)
[2018-03-18 22:50] LABS: TROPONIN I < 0.012 ng/mL
[2018-03-18] MEDS: FAMOTIDINE INJ/PF 20 MG/2 ML SDV IV SCH (22:54)
[2018-03-18] MEDS: ATORVASTATIN CALCIUM 40 MG TABLET PO SCH (22:54)
[2018-03-18] MEDS: TEMAZEPAM 15 MG CAPSULE PO PRN (23:02)
[2018-03-19 04:03] LABS: ABSOLUTE BASOPHILS # (AUTO) 0.1 10^3/uL (0.0-0.2); ABSOLUTE EOSINOPHILS # (AUTO) 0.2 10^3/uL (0.0-0.6); ABSOLUTE LYMPHOCYTES (AUTO) 2.9 10^3/uL (0.5-4.7); ABSOLUTE MONOCYTES (AUTO) 0.6 10^3/uL (0.1-1.4); ABSOLUTE NEUT (AUTO) 3.1 10^3/uL (1.7-8.2); BASOPHILS % (AUTO) 0.9 % (0-2); EOSINOPHILS % (AUTO) 2.9 % (0-6); HEMATOCRIT 39.9 % (36.0-47.0); HEMOGLOBIN 13.2 g/dL (12.0-15.5); LYMPHOCYTES % (AUTO) 42.3 % (13-45); MEAN CORPUSCULAR HEMOGLOBIN 28.9 pg (27.0-33.4); MEAN CORPUSCULAR VOLUME 87 fl (80-97); MONOCYTES % (AUTO) 9.2 % (3-13); PLATELET COUNT 226 10^3/uL (150-450); RED BLOOD COUNT 4.57 10^6/uL (3.72-5.28); RED CELL DISTRIBUTION WIDTH 13.3 % (11.5-14.0); SEGMENTED NEUTROPHILS % (AUTO) 44.7 % (42-78); TOTAL CELLS COUNTED % (AUTO) 100 %; WHITE BLOOD COUNT 6.8 10^3/uL (4.0-10.5)
[2018-03-19 04:27] LABS: ALANINE AMINOTRANSFERASE 34 U/L (9-52); ALBUMIN 4.2 g/dL (3.5-5.0); ALKALINE PHOSPHATASE 71 U/L (38-126); ANION GAP 11 (5-19); ASPARTATE AMINO TRANSFERASE 20 U/L (14-36); BILIRUBIN,DIRECT 0.1 mg/dL (0.0-0.4); BILIRUBIN,TOTAL 0.9 mg/dL (0.2-1.3); BLOOD UREA NITROGEN 12 mg/dL (7-20); CALCIUM 9.8 mg/dL (8.4-10.2); CARBON DIOXIDE 27 mmol/L (22-30); CHLORIDE 102 mmol/L (98-107); CHOLESTEROL 193.17 mg/dL (0-200); CREATINE KINASE 88 U/L (30-135); GLUCOSE 108 mg/dL (75-110); POTASSIUM 4.2 mmol/L (3.6-5.0); TOTAL PROTEIN 6.9 g/dL (6.3-8.2); TRIGLYCERIDES 101 mg/dL (<150)
[2018-03-19 04:36] LABS: CREATINE KINASE MB 0.44 ng/mL (<4.55)
[2018-03-19 04:37] LABS: TROPONIN I < 0.012 ng/mL
[2018-03-19 04:51] LABS: DIRECT LDL 123 mg/dL (<100)
[2018-03-19] MEDS: HYDROCHLOROTHIAZIDE 12.5 MG TABLET PO SCH (07:52)
[2018-03-19] MEDS: LISINOPRIL 10 MG TABLET PO SCH (07:53)
[2018-03-19] MEDS ORDERED: (PENDING PHARMACY ID) (Lisinopril/Hydrochlorothiazide [Lisinopril-Hctz 20-12.5 Mg Tab] 1 T PO SCH (08:00)
[2018-03-19] MEDS ORDERED: HYDROCHLOROTHIAZIDE 25 MG TABLET PO SCH (08:00)
[2018-03-19] MEDS ORDERED: DEXTROAMPHETAMINE PO SCH (08:00)
[2018-03-19] MEDS ORDERED: AMPHETAMINE PO SCH (08:00)
[2018-03-19] MEDS ORDERED: ACETAMINOPHEN 325 MG TABLET PO PRN (09:29)
--- NOTE | 2018-03-19 09:36 | PDOC PROGRESS REPORT ---
Subjective Progress Note for:: 03/19/18 Subjective:: 03/19/2018 no acute events in the last 24 hours. Patient able to follow this swallowing evaluation which was normal. Reason For Visit: TIA Physical Exam Vital Signs: Temp Pulse Resp BP Pulse Ox 97.9 F 63 18 131/85 H 97 03/19/18 07:18 03/19/18 08:00 03/19/18 08:00 03/19/18 08:00 03/19/18 08:00 Intake & Output 03/18/18 03/19/18 03/20/18 06:59 06:59 06:59 Intake Total 500 Output Total 0 Balance 500 Weight 105.3 kg General appearance: PRESENT: no acute distress Head exam: PRESENT: atraumatic Eye exam: PRESENT: PERRLA Teeth exam: PRESENT: poor dentation Neck exam: ABSENT: carotid bruit, JVD, lymphadenopathy, thyromegaly Respiratory exam: PRESENT: clear to auscultation massiel. ABSENT: rales, rhonchi, wheezes Cardiovascular exam: PRESENT: RRR. ABSENT: diastolic murmur, rubs, systolic murmur GI/Abdominal exam: PRESENT: normal bowel sounds, soft. ABSENT: distended, guarding, mass, organolmegaly, rebound, tenderness Extremities exam: PRESENT: full ROM. ABSENT: calf tenderness, clubbing, pedal edema Neurological exam: PRESENT: alert, awake, oriented to person, oriented to place, oriented to time, oriented to situation, CN II-XII grossly intact. ABSENT: motor sensory deficit Psychiatric exam: PRESENT: appropriate affect, normal mood. ABSENT: homicidal ideation, suicidal ideation Results Laboratory Results: 03/19/18 03:45 03/19/18 03:45 03/18/18 03/18/18 03/18/18 15:18 15:18 15:18 WBC 7.3 RBC 4.74 Hgb 13.9 Hct 41.6 MCV 88 MCH 29.2 MCHC 33.3 RDW 13.4 Plt Count 259 Seg Neutrophils % 39.0 L Lymphocytes % 48.1 H Monocytes % 9.7 Eosinophils % 2.8 Basophils % 0.4 Absolute Neutrophils 2.9 Absolute Lymphocytes 3.5 Absolute Monocytes 0.7 Absolute Eosinophils 0.2 Absolute Basophils 0.0 Sodium 141.8 Potassium 4.5 Chloride 100 Carbon Dioxide 34 H Anion Gap 8 BUN 13 Creatinine 0.87 Est GFR ( Amer) > 60 Est GFR (Non-Af Amer) > 60 Glucose 103 Calcium 10.3 H Total Bilirubin 0.9 AST 36 ALT 17 Alkaline Phosphatase 74 Total Protein 8.4 H Albumin 4.8 Triglycerides 124 Cholesterol 210.79 H LDL Cholesterol Direct 135 H VLDL Cholesterol 25.0 HDL Cholesterol 36 L 03/19/18 03/19/18 03:45 03:45 WBC 6.8 RBC 4.57 Hgb 13.2 Hct 39.9 MCV 87 MCH 28.9 MCHC 33.0 RDW 13.3 Plt Count 226 Seg Neutrophils % 44.7 Lymphocytes % 42.3 Monocytes % 9.2 Eosinophils % 2.9 Basophils % 0.9 Absolute Neutrophils 3.1 Absolute Lymphocytes 2.9 Absolute Monocytes 0.6 Absolute Eosinophils 0.2 Absolute Basophils 0.1 Sodium 140.0 Potassium 4.2 Chloride 102 Carbon Dioxide 27 Anion Gap 11 BUN 12 Creatinine 0.87 Est GFR ( Amer) > 60 Est GFR (Non-Af Amer) > 60 Glucose 108 Calcium 9.8 Total Bilirubin 0.9 AST 20 ALT 34 Alkaline Phosphatase 71 Total Protein 6.9 Albumin 4.2 Triglycerides 101 Cholesterol 193.17 LDL Cholesterol Direct 123 H VLDL Cholesterol 20.0 HDL Cholesterol 35 L 03/18/18 03/18/18 03/18/18 15:18 15:18 21:38 Creatine Kinase 66 87 CK-MB (CK-2) 0.46 Troponin I < 0.012 03/18/18 03/19/18 03/19/18 21:38 03:45 03:45 Creatine Kinase 88 CK-MB (CK-2) 0.47 0.44 Troponin I < 0.012 < 0.012 Impressions: Chest X-Ray 03/18/18 15:28 IMPRESSION: NO ACUTE RADIOGRAPHIC FINDING IN THE CHEST. Head CT 03/18/18 15:28 IMPRESSION: No acute intracranial pathology. No noncontrast CT evidence of acu te stroke or hemorrhage. EVIDENCE OF ACUTE STROKE: NO. Head CTA 03/18/18 15:44 IMPRESSION: NO CTA EVIDENCE OF STENOSIS OR ANEURYSM OF THE [place]. Neck CTA 03/18/18 15:44 IMPRESSION: 1. NORMAL CTA OF THE EXTRA-CRANIAL CAROTID AND VERTEBRAL ARTERIES. NO SIGNIFICANT PLAQUE. NO STENOSIS OR DISSECTION. 2. MULTIPLE THYROID NODULES. Head MRI 03/18/18 17:04 IMPRESSION: Left maxillary sinus disease. No acute intracranial imaging findings. EVIDENCE OF ACUTE STROKE: NO. Assessment & Plan - Diagnosis (1) Left-sided weakness Is this a current diagnosis for this admission?: Yes Plan: 03/18/2018 plan for today is to place the patient in [facility] as an inpatient with a diagnosis of left-sided CVA. Physical therapy consult occupational therapy consult was requested. Acute stroke core measures implemented Including the aspirin and Plavix ,Lovenox, SCDs atorvastatin ,lipid panel tomorrow, swallowing evaluation, neurochecks. Echocardiogram was requested CTA of the neck CT of the brain were negative for hemodynamically significant stenosis. MRI of the head without contrast was requested. The likely cause of CVA probably ischemic in nature. social worker psychiatric consult was requested. Dietary consult was requested. 03/19/2018-the left arm weakness is almost resolved. Power is 5 x 5. Patient still complaining of numbness in the left side of the face. Denies any problems swallowing denies any problems with vision. Waiting for the physical therapy evaluation. Patient is on aspirin Plavix atorvastatin. MRI of the brain was done which was negative for stroke but she has a left maxillary sinus disease. CT of the head and neck are negative. Echocardiogram report is pending. (2) Essential hypertension Is this a current diagnosis for this admission?: Yes Plan: 03/18/2016 patient is given the history of hypertension with high blood pressure readings at home associated with severe headaches here in the emergency room blood pressure is 160/102. She is on lisinopril/hydrochlorothiazide and amlodipine at home plan is to continue those medications while in the hospital. Started on Vaseretic IV as needed for systolic blood pressure more than 150. Low-salt diet was advised. 03/19/2016 patient came in with a systolic blood pressure of more than 200 at the time of admission. She is on lisinopril/hydrochlorothiazide and Vasotec IV as needed hydralazine IV as needed blood pressure this morning is 131/85. Plan is to continue the present management. Low-salt diet was advised. (3) Headache Qualifiers: Headache type: unspecified Headache chronicity pattern: unspecified pattern Intractability: not intractable Qualified Code(s): R51 - Headache Is this a current diagnosis for this admission?: Yes Plan: 03/18/2018-patient complaining of severe headaches probably secondary to uncontrolled hypertension and new CVA. I am going to put her on Percocet 10/325 mg every 6 as needed for headaches. Hopefully with better control of the blood pressures headaches may resolve. CT head was negative for acute changes. MRI of the brain was pending. 03/19/2018 patient came in with severe headaches may be secondary to uncontrolled hypertension, and as she has left maxillary sinus disease it may be a contributing factor for her headache also. Advised her to follow-up with ENT as an outpatient. I am going to start her on Zyrtec 10 mg p.o. nightly. (4) Hyperlipidemia Qualifiers: Hyperlipidemia type: unspecified Qualified Code(s): E78.5 - Hyperlipidemia, unspecified Is this a current diagnosis for this admission?: Yes Plan: 03/18/2018-patient's total cholesterol is 210, LDL is 135 HDL is 36. She was started on Lipitor 40 mg p.o. nightly. 03/19/2018-patient is a 40 mg p.o. nightly when she is going to be discharged I am going to give a prescription for her. (5) Obesity (BMI 30-39.9) Is this a current diagnosis for this admission?: Yes Plan: 03/18/2018-patient's BMI is more than 35 diet exercise weight loss lifestyle modification were advised. Dietary consult was requested. 03/19/2018-patient's BMI is more than 35. Diet exercise weight loss was advised and dietary consult was requested. (6) ADHD Is this a current diagnosis for this admission?: Yes Plan: 03/19/2018-patient has history of ADHD she is on Adderall we can resume her home medication. - Time Time Spent with patient: 15-24 minutes Medications reviewed and adjusted accordingly: Yes Anticipated discharge: Home
[2018-03-19] MEDS ORDERED: (PENDING PHARMACY ID) (Lisinopril/Hydrochlorothiazide [Lisinopril-Hctz 20-12.5 Mg Tab] 1 E PO SCH (10:00)
[2018-03-19] MEDS ORDERED: (PENDING PHARMACY ID) (Atenolol [Tenormin 100 Mg Tablet] 100 MG) PO SCH (10:00)
[2018-03-19] MEDS ORDERED: ATENOLOL 50 MG TABLET PO SCH ×3 (10:00→22:00)
[2018-03-19] MEDS ORDERED: CETIRIZINE 10 MG TABLET PO SCH (10:00)
[2018-03-19] MEDS: AMLODIPINE BESYLATE 5 MG TABLET PO SCH (10:59)
[2018-03-19] MEDS: CLOPIDOGREL BISULFATE 75 MG TABLET PO SCH (10:59)
[2018-03-19] MEDS: FAMOTIDINE INJ/PF 20 MG/2 ML SDV IV SCH ×2 (10:59→21:42)
[2018-03-19] MEDS: ASPIRIN 325 MG TABLET, ENT COATED PO SCH (10:59)
[2018-03-19] MEDS: ENOXAPARIN SODIUM INJ 40 MG/0.4 ML DISP.SYRIN SUBCUT SCH (10:59)
[2018-03-19 12:04] LABS: CREATINE KINASE MB 0.36 ng/mL (<4.55)
[2018-03-19 12:11] LABS: TROPONIN I < 0.012 ng/mL
--- NOTE | 2018-03-19 19:44 | XCELERA REPORT ---
[address] [address] Transthoracic Echocardiogram Report Name: BERE OTT Age: 52 yrs Gender: Female : 1965 Patient Status: Inpatient Patient Location: [address] [place] [address] Study Date: 03/19/2018 11:42 AM Height: 65 in Weight: 232 lb BSA: 2.1 m2 Procedure: A two-dimensional transthoracic echocardiogram with color flow and Doppler was performed. Study Quality: Poor. The study was technically difficult with many images being suboptimal in quality. Images were not obtained from all of the standard acoustic windows due to the limited scope of the study. Reason For Study: cva History: CVA. Ordering Physician: RAFFI PRABHAKAR Performed By: Dilshad Arreguin Interpretation Summary Study Quality: Poor. The study was technically difficult with many images being suboptimal in quality. Images were not obtained from all of the standard acoustic windows due to the limited scope of the study. CVA The left ventricle is normal in size. There is normal left ventricular wall thickness. No True apical 2 chamber views obtained.Hence cannot comment on the apical anterior , the basal anterior, the basal inferior and apical inferior gtz.The mid anterior , the mid inferior and the rest of the LV gtz contract normally. .Normal LVEF is normal and is greater than 65% in the limited views. Doppler measurements suggest impaired left ventricular relaxation, which is associated with grade I/IV or mild diastolic dysfunction There is no thrombus. The right ventricle is not well visualized secondary to technical limitations Right atrium not well visualized secondary to technical limitations The left atrial size is normal. There is no evidence of mitral valve prolapse. There is no vegetation seen on the mitral valve. There is no mitral valve stenosis. There is a trace amount of mitral regurgitation There is no aortic valve stenosis There is no LVOT obstruction. There is aortic sclerosis without aortic stenosis. No aortic regurgitation is present. There is no tricuspid stenosis. There is a trace amount of tricuspid regurgitation Right ventricular systolic pressure is normal. RVSP is 9 to 14 mm of Hg , with RA mean of 5 to 10. There is no pulmonic valvular stenosis. There is no pulmonic valvular regurgitation. The aortic root is normal size. The inferior vena cava was not well visualized The inferior vena cava appeared normal and decreased > 50% with respiration (RAP 5-10 mmHg) MMode/2D Measurements & Calculations RVDd: 3.1 cm LVIDd: 4.5 cm FS: 23.9 % Ao root diam: 2.7 cm IVSd: 1.2 cm LVIDs: 3.5 cm EDV(Teich): 94.3 mlAo root area: LVPWd: 0.99 cm ESV(Teich): 49.3 ml5.7 cm2 EF(Teich): 47.8 % LA dimension: 3.7 cm LVOT diam: 2.2 cm LVLd ap4: 8.4 cm SV(MOD-sp4): LVOT area: EDV(MOD-sp4): 48.0 ml 69.0 ml 4.0 cm2 LVLs ap4: 6.6 cm ESV(MOD-sp4): 21.0 ml EF(MOD-sp4): 69.6 % Doppler Measurements & Calculations MV E max harsh: MV P1/2t max harsh: Ao V2 max: LV V1 max P.6 cm/sec 86.1 cm/sec 124.9 cm/sec 5.2 mmHg MV A max harsh: MV P1/2t: 65.7 msec Ao max PG: LV V1 mean P.8 cm/sec MVA(P1/2t): 3.3 cm2 6.2 mmHg 3.5 mmHg MV E/A: 0.74 MV dec slope: Ao V2 mean: LV V1 max: 89.2 cm/sec 114.0 cm/sec 383.7 cm/sec2 Ao mean PG: LV V1 mean: MV dec time: 0.19 sec3.7 mmHg 88.2 cm/sec Ao V2 VTI: 24.2 cmLV V1 VTI: 23.9 cm LIZETH(I,D): 3.9 cm2 LIZETH(V,D): 3.6 cm2 MR max harsh: SV(LVOT): 94.8 ml PA V2 max: TR max harsh: 144.5 cm/sec 83.8 cm/sec 110.1 cm/sec MR max P.4 mmHg PA max PG: TR max P.8 mmHg 4.9 mmHg MV P1/2t-pr_phl: 65.7 msec Left Ventricle The left ventricle is normal in size. There is normal left ventricular wall thickness. No True apical 2 chamber views obtained.Hence cannot comment on the apical anterior , the basal anterior, the basal inferior and apical inferior gtz.The mid anterior , the mid inferior and the rest of the LV gtz contract normally. .Normal LVEF is normal and is greater than 65% in the limited views. Doppler measurements suggest impaired left ventricular relaxation, which is associated with grade I/IV or mild diastolic dysfunction. There is no thrombus. Right Ventricle The right ventricle is not well visualized secondary to technical limitations. Atria Right atrium not well visualized secondary to technical limitations. The left atrial size is normal. Mitral Valve There is no evidence of mitral valve prolapse. There is no vegetation seen on the mitral valve. There is no mitral valve stenosis. There is a trace amount of mitral regurgitation. Aortic Valve There is no aortic valvular vegetation. There is no aortic valve stenosis. There is no LVOT obstruction. There is aortic sclerosis without aortic stenosis. No aortic regurgitation is present. Tricuspid Valve There is no tricuspid stenosis. There is a trace amount of tricuspid regurgitation. Right ventricular systolic pressure is normal. RVSP is 9 to 14 mm of Hg , with RA mean of 5 to 10. Pulmonic Valve There is no pulmonic valvular stenosis. There is no pulmonic valvular regurgitation. Great Vessels The aortic root is normal size. The inferior vena cava was not well visualized. The inferior vena cava appeared normal and decreased > 50% with respiration (RAP 5-10 mmHg). Effusions There is no pericardial effusion. : RAFFI PRABHAKAR > Geraldine Ledbetter
[2018-03-19] MEDS: TEMAZEPAM 15 MG CAPSULE PO PRN (21:42)
[2018-03-19] MEDS: ATORVASTATIN CALCIUM 40 MG TABLET PO SCH (21:43)
[2018-03-19] MEDS ORDERED: MONTELUKAST SODIUM 10 MG TABLET PO SCH (22:00)
[2018-03-20 07:37] VITALS: BP 126/62
[2018-03-20] MEDS: HYDROCHLOROTHIAZIDE 12.5 MG TABLET PO SCH (08:33)
[2018-03-20] MEDS: LISINOPRIL 10 MG TABLET PO SCH (08:33)
--- NOTE | 2018-03-20 08:34 | PDOC DISCHARGE SUMMARY ---
General - Admit/Disc Date/PCP Admission Date/Primary Care Provider: 03/18/18 17:45 NACHO HESS MD Discharge Date: 03/20/18 - Discharge Diagnosis (1) Left-sided weakness Is this a current diagnosis for this admission?: Yes Summary: 03/18/2018 plan for today is to place the patient in [facility] as an inpatient with a diagnosis of left-sided CVA. Physical therapy consult occupational therapy consult was requested. Acute stroke core measures implemented Including the aspirin and Plavix ,Lovenox, SCDs atorvastatin ,lipid panel tomorrow, swallowing evaluation, neurochecks. Echocardiogram was requested CTA of the neck CT of the brain were negative for hemodynamically significant stenosis. MRI of the head without contrast was requested. The likely cause of CVA probably ischemic in nature. social insurance administrator consult was requested. Dietary consult was requested. 03/19/2018-the left arm weakness is almost resolved. Power is 5 x 5. Patient still complaining of numbness in the left side of the face. Denies any problems swallowing denies any problems with vision. Waiting for the physical therapy evaluation. Patient is on aspirin Plavix atorvastatin. MRI of the brain was done which was negative for stroke but she has a left maxillary sinus disease. CT of the head and neck are negative. Echocardiogram report is pending. 03/20/2018-patient was admitted with left facial numbness slightly slurred speech and left arm weakness symptoms are resolved. CT head was negative was MRI of the brain was negative CTA of the neck was negative. Patient is going home on aspirin/atorvastatin/lisinopril hydrochlorothiazide. Diet exercise weight loss was also advised. She will do not need any home health. (2) Essential hypertension Is this a current diagnosis for this admission?: Yes Summary: 03/18/2016 patient is given the history of hypertension with high blood pressure readings at home associated with severe headaches here in the emergency room blood pressure is 160/102. She is on lisinopril/hydrochlorothiazide and amlodipine at home plan is to continue those medications while in the hospital. Started on Vaseretic IV as needed for systolic blood pressure more than 150. Low-salt diet was advised. 03/19/2016 patient came in with a systolic blood pressure of more than 200 at the time of admission. She is on lisinopril/hydrochlorothiazide and Vasotec IV as needed hydralazine IV as needed blood pressure this morning is 131/85. Plan is to continue the present management. Low-salt diet was advised. 03/20/2018 blood pressure today is 126/62 well-controlled with heart rate of 55. Patient is asymptomatic. She came in with very high blood pressures systolic blood pressure of more than 200 at the time of admission. Hypotension is resolved and stable now. Strongly advised to continue the present management and advise her to take low-salt diet. (3) Headache Is this a current diagnosis for this admission?: Yes Summary: 03/18/2018-patient complaining of severe headaches probably secondary to uncontrolled hypertension and new CVA. I am going to put her on Percocet 10/325 mg every 6 as needed for headaches. Hopefully with better control of the blood pressures headaches may resolve. CT head was negative for acute changes. MRI of the brain was pending. 03/19/2018 patient came in with severe headaches may be secondary to uncontrolled hypertension, and as she has left maxillary sinus disease it may be a contributing factor for her headache also. Advised her to follow-up with ENT as an outpatient. I am going to start her on Zyrtec 10 mg p.o. nightly. 03/20/2017 patient came in with severe left-sided headaches probably secondary to uncontrolled hypertension no more complaints of headaches. CT MRI of the brain shows she has left maxillary sinus problem patient was advised to follow-up with the ENT. (4) Hyperlipidemia Is this a current diagnosis for this admission?: Yes Summary: 03/18/2018-patient's total cholesterol is 210, LDL is 135 HDL is 36. She was started on Lipitor 40 mg p.o. nightly. 03/19/2018-patient is on atorvastatin 40 mg p.o. nightly when she is going to be discharged I am going to give a prescription for her. 03/20/2018 patient is going home on atorvastatin 40 mg p.o. at night. (5) Obesity (BMI 30-39.9) Is this a current diagnosis for this admission?: Yes Summary: 03/18/2018-patient's BMI is more than 35 diet exercise weight loss lifestyle north fication were advised. Dietary consult was requested. 03/19/2018-patient's BMI is more than 35. Diet exercise weight loss was advised and dietary consult was requested. 03/20/2018-BMI is more than 40 dietary consult was done. Diet exercise weight loss was advised. (6) ADHD Is this a current diagnosis for this admission?: Yes Summary: 03/19/2018-patient has history of ADHD she is on Adderall we can resume her home medication. (7) Opacification of left maxillary sinus Is this a current diagnosis for this admission?: Yes Summary: 03/20/2018 MRI of the head shows left maxillary sinus disease probably is 1 of the reasons for her severe headaches. She was given Singulair 10 mg p.o. daily patient says is working well. - Additional Information Resuscitation Status: Full Code Discharge Diet: Cardiac Discharge Activity: Activity As Tolerated Prescriptions: Amlodipine Besylate [Norvasc 5 mg Tablet] 5 mg PO DAILY #30 tablet Aspirin [Ecotrin 325 mg EC Tablet] 325 mg PO DAILY #30 tabec Atorvastatin Calcium [Lipitor 40 mg Tablet] 40 mg PO QHS #30 tablet Montelukast Sodium [Singulair 10 mg Tablet] 10 mg PO QHS #30 tablet Home Medications: Atenolol [Tenormin 100 mg Tablet] 100 mg PO DAILY 03/18/18 Dextroamphetamine/Amphetamine [Adderall 10 mg Tablet] 10 mg PO 1400 PRN 03/18/18 Dextroamphetamine/Amphetamine [Adderall 10 mg Tablet] 10 mg PO QAM 03/18/18 Lisinopril/Hydrochlorothiazide [Lisinopril-Hctz 20-12.5 mg Tab] 1 each PO DAILY 03/18/18 Amlodipine Besylate [Norvasc 5 mg Tablet] 5 mg PO DAILY #30 tablet 03/20/18 Aspirin [Ecotrin 325 mg EC Tablet] 325 mg PO DAILY #30 tabec 03/20/18 Atorvastatin Calcium [Lipitor 40 mg Tablet] 40 mg PO QHS #30 tablet 03/20/18 Cyclobenzaprine HCl [Flexeril 10 mg Tablet] 10 mg PO Q8HP PRN tablet 03/20/18 Dextroamphetamine/Amphetamine [Adderall XR 10 mg Capsule] 10 mg PO QAM 03/20/18 Montelukast Sodium [Singulair 10 mg Tablet] 10 mg PO QHS #30 tablet 03/20/18 History of Present Illness History of Present Illness: BERE OTT is a 52 year old female with history of hypertension degenerative disc disease ADHD hypertension came to the emergency room with complaints of severe headaches on and off associated with left-sided weakness since 1 week. She tried to bear with the problems and even went to work since yesterday the symptoms are gotten worse so bad that she came to the emergency room today. She denies any nausea vomiting diarrhea diarrhea. She is complaining of little bit of sloughing of the speech. Denies any problems with vision denies any problem with swallowing. Has any problem with urination denies any problems with bowel movement. She says she is to have a headaches before but never had this kind of headaches. Has any problems with swallowing. Emergency room CT head was done which was negative for acute CVA CT of the neck CT of the head was done negative for hemodynamically significant stenosis. Medical consult was requested for admission. I went to see the patient in the emergency room she is a very very pleasant lady she confirms a history got from the records and she says she missed a couple of doses of blood pressure medications lately other than that she said nothing is different she is doing patient denies any problems with gait problems with walking only complaint is slightly slowed speech severe headaches left upper arm numbness. Facial numbness also she is complaining. Physical Exam Vital Signs: Temp Pulse Resp BP Pulse Ox 98.4 F 55 L 16 126/62 H 100 03/20/18 07:23 03/20/18 07:23 03/20/18 07:23 03/20/18 07:23 03/20/18 07:23 Intake & Output 03/19/18 03/20/18 03/21/18 06:59 06:59 06:59 Intake Total 500 1860 Output Total 0 Balance 500 1860 Weight 105.3 kg 107.1 kg General appearance: PRESENT: no acute distress Head exam: PRESENT: atraumatic Eye exam: PRESENT: PERRLA Mouth exam: PRESENT: moist Neck exam: ABSENT: carotid bruit, JVD, lymphadenopathy, thyromegaly Respiratory exam: PRESENT: clear to auscultation massiel. ABSENT: rales, rhonchi, wheezes Cardiovascular exam: PRESENT: RRR. ABSENT: diastolic murmur, rubs, systolic murmur GI/Abdominal exam: PRESENT: normal bowel sounds, soft. ABSENT: distended, guarding, mass, organolmegaly, rebound, tenderness Rectal exam: PRESENT: deferred Extremities exam: PRESENT: full ROM. ABSENT: calf tenderness, clubbing, pedal edema Neurological exam: PRESENT: alert, awake, oriented to person, oriented to place, oriented to time, oriented to situation, CN II-XII grossly intact. ABSENT: motor sensory deficit Psychiatric exam: PRESENT: appropriate affect, normal mood. ABSENT: homicidal ideation, suicidal ideation Results Laboratory Results: 03/19/18 03:45 03/19/18 03:45 03/18/18 03/18/18 03/18/18 15:18 15:18 21:38 Creatine Kinase 66 87 CK-MB (CK-2) 0.46 Troponin I < 0.012 03/18/18 03/19/18 03/19/18 21:38 03:45 03:45 Creatine Kinase 88 CK-MB (CK-2) 0.47 0.44 Troponin I < 0.012 < 0.012 03/19/18 03/19/18 10:51 10:51 Creatine Kinase 76 CK-MB (CK-2) 0.36 Troponin I < 0.012 Impressions: Chest X-Ray 03/18/18 15:28 IMPRESSION: NO ACUTE RADIOGRAPHIC FINDING IN THE CHEST. Head CT 03/18/18 15:28 IMPRESSION: No acute intracranial pathology. No noncontrast CT evidence of acute stroke or hemorrhage. EVIDENCE OF ACUTE STROKE: NO. Head CTA 03/18/18 15:44 IMPRESSION: NO CTA EVIDENCE OF STENOSIS OR ANEURYSM OF THE TANACROSS OF SELLERS. Neck CTA 03/18/18 15:44 IMPRESSION: 1. NORMAL CTA OF THE EXTRA-CRANIAL CAROTID AND VERTEBRAL ARTERIES. NO SIGNIFICANT PLAQUE. NO STENOSIS OR DISSECTION. 2. MULTIPLE THYROID NODULES. Head MRI 03/18/18 17:04 IMPRESSION: Left maxillary sinus disease. No acute intracranial imaging findings. EVIDENCE OF ACUTE STROKE: NO. Qualifiers - * PATIENT BEING DISCHARGED WITH ANY OF THE FOLLOWING DIAGNOSIS: Stroke VTE patient discharged on overlapping Therapy?: Yes Stroke Pt being discharged on Anti-thrombolytic therapy?: No Reason(s) for not prescribing Anti-thrombolytic therapy:: Not indicated Stroke Pt being discharged on Anti-coagulation therapy?: No Reason(s) for not prescribing Anti-coagulation therapy:: Not indicated Stroke Pt being discharged on Statins?: Yes DE Pt being discharged on Aspirin therapy?: Yes
[2018-03-20] MEDS: ASPIRIN 325 MG TABLET, ENT COATED PO SCH (09:12)
[2018-03-20] MEDS: CLOPIDOGREL BISULFATE 75 MG TABLET PO SCH (09:12)
[2018-03-20] MEDS: AMLODIPINE BESYLATE 5 MG TABLET PO SCH (09:12)
[2018-03-20] MEDS: FAMOTIDINE INJ/PF 20 MG/2 ML SDV IV SCH (09:14)
[2018-03-20] MEDS: ENOXAPARIN SODIUM INJ 40 MG/0.4 ML DISP.SYRIN SUBCUT SCH (09:14)
--- NOTE | 2018-03-30 03:55 | Physician Advisory Note ---
Physician Advisor ProgressNote .: Pursuant to the plan for [facility], I have reviewed the medical record for this patient. Physician Advisor Statement: Reviewed for possible appeal of denial of Inpatient status. Dx.s not yet clarified/documented on chart: 1. ?"Lt hemiplegia [vs LUE weakness w/o LLE weakness, ...]& ataxia & dysarthria due to " ["TIAs" vs "Acute cerebrovascular insufficiency" vs "reversible cerebrovascular vasoconstriction synd" vs "cervical stenosis" vs ... ] - was CVA ruled out? was TIA ruled out? ... - per ED dr, pt had LUE & LLE weakness as well as LLE ataxia in ED. - per Ed nurse, pt reported prior h/o cervical stenosis affecting Lt side 2. "chronic diastolic CHF"? - ECHO showed diastolic dysfunction STatus points: [employer] has denied INpatient status. Pts w/acute CVA visible on imaging & cont'd sx are typically appropriate for Inpt status. Pts w/TIAs, or weakness due to other causes, are typically most appropriate to come in as Obs initally, then considering changing to Inpt subsequently if clinically still concerning. In this case, pt did not shank turner to have visible CVA on imaging, but at time of Inpt status decision, attending was strongly suspecting acute CVA, & pt still had persistent acute facial droop & LUE weakness that had been going on for several hours, and attending was clearly expecting MRI to show acute ischemic CVA. Appealing denial. Thanks, CK
== END 2018-03-20 10:05 | disposition home or self-care (01) | DRG 69 ==
LOC: ER 15:20 → EH 17:45 → 3S 21:51
PROVIDERS: ADMIT Hospitalist; ATTEND Hospitalist
DX: G45.9 Transient cerebral ischemic attack, unspecified (principal); G81.94 Hemiplegia, unspecified affecting left nondominant side; J32.0 Chronic maxillary sinusitis; R20.0 Anesthesia of skin; I10 Essential (primary) hypertension; E78.00 Pure hypercholesterolemia, unspecified; Z68.38 Body mass index [BMI] 38.0-38.9, adult; F90.9 Attention-deficit hyperactivity disorder, unspecified type; E66.9 Obesity, unspecified; R29.810 Facial weakness; M19.90 Unspecified osteoarthritis, unspecified site; R29.704 NIHSS score 4; Z79.899 Other long term (current) drug therapy; Z90.49 Acquired absence of other specified parts of digestive tract; Z82.49 Family history of ischemic heart disease and other diseases of the circulatory system
CPT/HCPCS: 36415; 70450; 70496; 70498; 70551; 71045; 80053; 80061; 82550; 82553; 82962; 83036; 84484; 85025; 85610; 85730; 93005; 93010; 93306; 96361; 96374; 96375; 99291; J1200; J1650; J2765; J3490; J7040; S0028